=== PATIENT | female | born 1980 | race Caucasian/White ===

== ENCOUNTER 2018-08-09 18:38 | Emergency (ER) | payer BC ==
[2018-08-09] MEDS ORDERED: ONDANSETRON HCL INJ/PF 4 MG/2 ML SDV IV ONE (19:08)
--- NOTE | 2018-08-09 19:11 | ER Document Report ---
ED Medical Screen (RME) - General Chief Complaint: Vaginal Bleeding Stated Complaint: ABDOMINAL PAIN, NAUSEA, VOMITING Time Seen by Provider: 08/09/18 18:54 Mode of Arrival: Ambulatory Information source: Patient Notes: 37-year-old female with type 1 diabetes, PCOS, presents with complaint of nausea , vomiting, diarrhea and lower abdominal pain that started this morning. Patient's vaginal bleeding also started this morning. She reports passing a large blood clot. Patient does report a history of irregular and heavy periods. She does report a negative home test. I have greeted and performed a rapid initial assessment of this patient. A comprehensive ED assessment and evaluation of the patient, analysis of test results and completion of medical decision making process we will be contacted by additional ED providers. PHYSICAL EXAMINATION: Vital signs reviewed-tachycardic, afebrile GENERAL: Appears to be in pain LUNGS: No respiratory distress Musculoskeletal: Normal range of motion NEUROLOGICAL: Normal speech, normal gait. PSYCH: Normal mood, normal affect. SKIN: Warm, Dry, normal turgor, no rashes or lesions noted. TRAVEL OUTSIDE OF THE [place] IN LAST 30 DAYS: No - HPI Onset: This morning Onset/Duration: Gradual, Persistent Quality of pain: Cramping Severity: Moderate Associated Symptoms: Diarrhea, Nausea, Vaginal bleeding, Vomiting Exacerbated by: Denies Relieved by: Denies Similar symptoms previously: Yes Recently seen / treated by doctor: No - Related Data Smoking: Non-smoker Frequency of alcohol use: None Drug Abuse: None Allergies/Adverse Reactions: No Known Allergies Allergy (Verified 04/13/16 15:21) Past Medical History - Social History Chew tobacco use (# tins/day): No Frequency of alcohol use: None Drug Abuse: None - Past Medical History Cardiac Medical History: Reports: Hx Hypertension Pulmonary Medical History: Reports: Hx Bronchitis Endocrine Medical History: Reports: Hx Diabetes Mellitus Type 1 Renal/ Medical History: Reports: Hx Ovarian Cysts. Denies: Hx Peritoneal Dialysis Past Surgical History: Reports: Hx Oral Surgery, Hx Orthopedic Surgery - LEFT KNEE - Immunizations Hx Diphtheria, Pertussis, Tetanus Vaccination: Yes Physical Exam - Vital signs Vitals: Temp Pulse Resp BP Pulse Ox 98.2 F 101 H 18 141/85 H 98 08/09/18 18:46 08/09/18 18:46 08/09/18 18:46 08/09/18 18:46 08/09/18 18:46 Course - Vital Signs Vital signs: Temp Pulse Resp BP Pulse Ox 98.2 F 101 H 18 141/85 H 98 08/09/18 18:46 08/09/18 18:46 08/09/18 18:46 08/09/18 18:46 08/09/18 18:46 Doctor's Discharge - Discharge Referrals: SHARMILA WHITTINGTON MD [Primary Care Provider] - Follow up as needed
[2018-08-09 19:42] LABS: ABSOLUTE BASOPHILS # (AUTO) 0.1 10^3/uL (0.0-0.2); ABSOLUTE EOSINOPHILS # (AUTO) 0.5 10^3/uL (0.0-0.6); ABSOLUTE LYMPHOCYTES (AUTO) 3.7 10^3/uL (0.5-4.7); ABSOLUTE MONOCYTES (AUTO) 0.7 10^3/uL (0.1-1.4); ABSOLUTE NEUT (AUTO) 10.9 10^3/uL (1.7-8.2); BASOPHILS % (AUTO) 0.8 % (0-2); EOSINOPHILS % (AUTO) 2.9 % (0-6); HEMATOCRIT 39.4 % (36.0-47.0); HEMOGLOBIN 13.5 g/dL (12.0-15.5); LYMPHOCYTES % (AUTO) 23.4 % (13-45); MEAN CORPUSCULAR HEMOGLOBIN 31.5 pg (27.0-33.4); MEAN CORPUSCULAR HGB CONC 34.4 g/dL (32.0-36.0); MEAN CORPUSCULAR VOLUME 92 fl (80-97); MONOCYTES % (AUTO) 4.4 % (3-13); PLATELET COUNT 433 10^3/uL (150-450); RED CELL DISTRIBUTION WIDTH 13.2 % (11.5-14.0); SEGMENTED NEUTROPHILS % (AUTO) 68.5 % (42-78); TOTAL CELLS COUNTED % (AUTO) 100 %; WHITE BLOOD COUNT 15.9 10^3/uL (4.0-10.5)
[2018-08-09 19:52] LABS: APPEARANCE,URINE CLEAR; BILIRUBIN,URINE NEGATIVE (NEGATIVE); COLOR,URINE YELLOW; GLUCOSE, URINE NEGATIVE (NEGATIVE); KETONES,URINE NEGATIVE (NEGATIVE); LEUKOCYTE ESTERASE,URINE MODERATE (NEGATIVE); NITRITE,URINE NEGATIVE (NEGATIVE); PROTEIN,URINE NEGATIVE (NEGATIVE); URINE SPECIFIC GRAVITY 1.018; UROBILINOGEN,URINE NEGATIVE mg/dL (<2.0)
[2018-08-09 19:55] LABS: ALANINE AMINOTRANSFERASE 8 U/L (9-52); ALBUMIN 3.9 g/dL (3.5-5.0); ALKALINE PHOSPHATASE 94 U/L (38-126); ANION GAP 10 (5-19); ASPARTATE AMINO TRANSFERASE 9 U/L (14-36); BILIRUBIN,DIRECT 0.2 mg/dL (0.0-0.4); BILIRUBIN,TOTAL 0.2 mg/dL (0.2-1.3); BLOOD UREA NITROGEN 12 mg/dL (7-20); CALCIUM 9.4 mg/dL (8.4-10.2); CARBON DIOXIDE 27 mmol/L (22-30); CHLORIDE 106 mmol/L (98-107); GLUCOSE 160 mg/dL (75-110); LIPASE 231.6 U/L (23-300); POTASSIUM 4.2 mmol/L (3.6-5.0); SODIUM 142.6 mmol/L (137-145)
[2018-08-09] MEDS ORDERED: KETOROLAC TROMETHAMINE INJ/PF 30 MG/1 ML SDV IV ONE (20:54)
[2018-08-09] MEDS ORDERED: NORMAL SALINE 1000 ML 1,000 ML IV ONE (20:54)
--- NOTE | 2018-08-09 21:25 | ER Document Report ---
ED General - General Chief Complaint: Vaginal Bleeding Stated Complaint: ABDOMINAL PAIN, NAUSEA, VOMITING Time Seen by Provider: 08/09/18 18:54 Mode of Arrival: Ambulatory Notes: Patient is a 37-year-old female with a past medical history of type 2 diabetes, hypertension, recurrent ovarian cysts who presents with approximately 6-8 hours of left lower abdominal pain. The patient states that this pain started relatively abruptly and has been getting progressively worse since that time. She describes as a stabbing, severe, constant pain to her left lower abdomen. The patient states that she has had identical symptoms in the past with rupture of ovarian cysts. She notes associated nausea but no vomiting. She has not tried anything to improve her pain. Nothing worsens her pain. She has not seen her general physician regarding today's concerns. She denies associated constitutional symptoms or fever. TRAVEL OUTSIDE OF THE [place] IN LAST 30 DAYS: No - Related Data Allergies/Adverse Reactions: No Known Allergies Allergy (Verified 08/09/18 22:56) Past Medical History - General Information source: Patient - Social History Smoking Status: Current Every Day Smoker Chew tobacco use (# tins/day): No Frequency of alcohol use: None Drug Abuse: None Lives with: Spouse/Significant other Family History: Reviewed & Not Pertinent Patient has suicidal ideation: No Patient has homicidal ideation: No - Past Medical History Cardiac Medical History: Reports: Hx Hypertension Pulmonary Medical History: Reports: Hx Bronchitis Endocrine Medical History: Reports: Hx Diabetes Mellitus Type 1 Renal/ Medical History: Reports: Hx Ovarian Cysts. Denies: Hx Peritoneal Dialysis Past Surgical History: Reports: Hx Oral Surgery, Hx Orthopedic Surgery - LEFT KNEE - Immunizations Hx Diphtheria, Pertussis, Tetanus Vaccination: Yes Review of Systems - Review of Systems Notes: Constitutional: Negative for fever. HENT: Negative for sore throat. Eyes: Negative for visual changes. Cardiovascular: Negative for chest pain. Respiratory: Negative for shortness of breath. Gastrointestinal: Positive for abdominal pain and nausea Genitourinary: Negative for dysuria. Positive for vaginal bleeding Musculoskeletal: Negative for back pain. Skin: Negative for rash. Neurological: Negative for headaches, weakness or numbness. 10 point ROS negative except as marked above and in HPI. Physical Exam - Vital signs Vitals: Temp Pulse Resp BP Pulse Ox 98.2 F 101 H 18 141/85 H 98 08/09/18 18:46 08/09/18 18:46 08/09/18 18:46 08/09/18 18:46 08/09/18 18:46 Interpretation: Tachycardic Notes: PHYSICAL EXAMINATION: GENERAL: Appears to be in moderate discomfort but no acute distress HEAD: Atraumatic, normocephalic. EYES: Pupils equal round and reactive to light, extraocular movements intact, sclera anicteric, conjunctiva are normal. ENT: nares patent, oropharynx clear without exudates. Moist mucous membranes. NECK: Normal range of motion, supple without lymphadenopathy LUNGS: Breath sounds clear to auscultation bilaterally and equal. No wheezes rales or rhonchi. HEART: Regular tachycardia without murmurs ABDOMEN: Soft, focal tenderness to the left adnexa otherwise no areas of localized abdominal tenderness, normoactive bowel sounds. No guarding, no rebound. No masses appreciated. : No cervical motion tenderness. Scant vaginal bleeding. Mild left adnexal tenderness. EXTREMITIES: Normal range of motion, no pitting or edema. No cyanosis. NEUROLOGICAL: No focal neurological deficits. Moves all extremities spontaneously and on command. PSYCH: Normal mood, normal affect. SKIN: Warm, Dry, normal turgor, no rashes or lesions noted. Course - Re-evaluation Re-evalutation: 08/09/18 21:19 Patient presents with 24 hours of left adnexal pain. On exam she does have some focal tenderness to the left adnexa but her abdominal exam is otherwise completely benign without any areas of focal tenderness, rebound or guarding. Patient appears mild uncomfortable but is otherwise in no acute distress. Vitals within normal limits. Labs are notable for a mild ketosis but otherwise unremarkable. She is not . Transvaginal ultrasound pending to evaluate for the low probability of an ovarian torsion although patient states this feels any cold when she has had ovarian cyst ruptures related to her PCOS in the past. 08/09/18 22:47 Patient feels much improved. Transvaginal ultrasound without any acute findings. Pelvic exam without any evidence of cervical motion tenderness or discharge from cervical loss other than mild blood to suggest any infectious etiology. Patient's heart rate has likewise improved. At this time her symptoms appear to be mostly related to menstrual cramping versus possible ruptured ovarian cyst. Very low suspicion for ovarian torsion, tubo-ovarian abscess, pelvic inflammatory disease or any other alternative N pathology. The patient has no abdominal tenderness the right lower quadrant to suggest an acute appendicitis. No upper abdominal tenderness to suggest pink otitis or biliary pathology. No left lower quadrant tenderness to suggest an acute diverticulitis. At this time will discharge with return precautions and follow- up recommendations. Verbal discharge instructions given a the bedside and opportunity for questions given. Medication warnings reviewed. Patient is in agreement with this plan and has verbalized understanding of return precautions and the need for primary care follow-up in the next 24-72 hours. - Vital Signs Vital signs: Temp Pulse Resp BP Pulse Ox 98 F 65 15 118/62 99 08/09/18 22:26 08/09/18 22:26 08/09/18 22:26 08/09/18 22:26 08/09/18 22:26 - Laboratory Result Diagrams: 08/09/18 19:15 08/09/18 19:15 Laboratory results interpreted by me: 08/09/18 08/09/18 08/09/18 19:15 19:15 19:15 WBC 15.9 H Absolute Neutrophils 10.9 H Glucose 160 H POC Glucose AST 9 L ALT 8 L Urine Blood MODERATE H Ur Leukocyte Esterase MODERATE H Urine Ascorbic Acid 40 H 08/09/18 19:22 WBC Absolute Neutrophils Glucose POC Glucose 196 H AST ALT Urine Blood Ur Leukocyte Esterase Urine Ascorbic Acid - Diagnostic Test Radiology reviewed: Reports reviewed Discharge - Discharge Clinical Impression: Lower abdominal pain, Vaginal bleeding, Pelvic pain Condition: Good Disposition: HOME, SELF-CARE Additional Instructions: You have been seen in the Emergency Department (ED) for abdominal pain. Your evaluation did not identify a clear cause of your symptoms but was generally reassuring. Please follow up with your doctor as soon as possible regarding today's emergent visit and the symptoms that are bothering you. Return to the ED if your abdominal pain worsens or fails to improve, you develop bloody vomiting, bloody diarrhea, you are unable to tolerate fluids due to vomiting, fever greater than 101, or other symptoms that concern you. For your pain: Take ibuprofen 600 mg and acetaminophen 1000 mg every 6 hours together as needed for pain. If this does not control your pain you may take 50 mg of tramadol every 8 hours as needed for pain not controlled by the above regimen. Prescriptions: Tramadol HCl [Ultram] 50 mg PO Q8HP PRN #6 tablet PRN Reason: Referrals: SHARMILA WHITTINGTON MD [COMMUNITY BASED STAFF] - Follow up in 3-5 days
[2018-08-09] MEDS ORDERED: MORPHINE SULFATE 10 MG/ML INJ IV PRN (22:06)
--- NOTE | 2018-08-09 22:14 | RADIOLOGY REPORT (SQ) ---
EXAM DESCRIPTION: US TRANSVAGINAL COMPLETED DATE/TME: 08/09/2018 20:54 CLINICAL HISTORY: 37 years, Female, left adnexal pain. Findings: Uterus is anteverted and measures 8.9 x 4.4 x 3.9 cm. Endometrium measures 6 mm. Cervix measures 3.3 cm and is closed. Right ovary measures 2.9 x 2.2 x 2.0 cm. Left ovary is not visualized due to bowel gas. No significant ovarian cysts. No free fluid in the cul-de-sac. IMPRESSION: No suspicious findings.
[2018-08-09 22:27] VITALS: BP 118/62
[2018-08-09 22:59] LABS: RBCS (WET MOUNT) 4+ RBCS SEEN; T.VAGINALIS (WET MOUNT) NO TRICHOMONAS SEEN; WBCS (WET MOUNT) 1+ WBCS SEEN; YEAST (WET MOUNT) NO YEAST SEEN
[2018-08-10 00:26] LABS: CHLAM PCR NOT DETECTED (NOT DETECT); GON PCR NOT DETECTED (NOT DETECT)
== END 2018-08-09 23:04 | disposition home or self-care (01) ==
LOC: ER 18:38
DX: R10.32 Left lower quadrant pain (principal); R10.2 Pelvic and perineal pain; N93.9 Abnormal uterine and vaginal bleeding, unspecified; R11.0 Nausea; F17.200 Nicotine dependence, unspecified, uncomplicated; I10 Essential (primary) hypertension
CPT/HCPCS: 99284; 96361; 96374; 96375; 36415; 87210; 82962; 83690; 85025; 81025; 80053; 81001; 87491; 87591; 76830; 93976; J1885; J2405; J7030

== ENCOUNTER 2018-08-22 02:55 | Emergency (ER) | payer BC ==
[2018-08-22] MEDS ORDERED: KETOROLAC TROMETHAMINE INJ/PF 30 MG/1 ML SDV IV ONE (03:41)
[2018-08-22] MEDS ORDERED: ONDANSETRON HCL INJ/PF 4 MG/2 ML SDV IV ONE (03:41)
[2018-08-22] MEDS ORDERED: NORMAL SALINE 1000 ML 1,000 ML IV ONE ×2 (03:41→06:16)
--- NOTE | 2018-08-22 03:44 | ER Document Report ---
Addendum entered and electronically signed by CLARK GREEN NP 08/25/18 11:24: Provider Note Provider Note: Culture nurse brought to my attention the patient's culture report. Patient has E. coli in her urine as well as 1 complete sets of blood cultures. Antibiotic the patient was placed on is not appropriate for E. coli. Attempted to call the patient, there was no answer. I did fill out the appropriate order for Abena lockwood to call the patient and change her antibiotic to Cipro 500 mg twice daily for 10 days. If patient is not feeling better patient is to return to the emergency department. Addendum entered and electronically signed by CLARK GREEN NP 08/23/18 08:34: Course - Vital Signs Vital signs: Temp Pulse Resp BP Pulse Ox 98.8 F 98 16 111/55 L 99 08/22/18 10:45 08/22/18 10:59 08/22/18 10:59 08/22/18 10:59 08/22/18 10:59 - Laboratory Result Diagrams: 08/22/18 04:27 08/22/18 04:27 Laboratory results interpreted by me: 08/22/18 08/22/18 08/22/18 04:27 04:27 05:42 WBC 18.3 H Seg Neutrophils % 83.6 H Lymphocytes % 6.8 L Absolute Neutrophils 15.3 H Absolute Monocytes 1.6 H Creatinine 0.51 L Glucose 119 H AST 8 L Total Protein 6.2 L Urine Protein 100 H Urine Blood MODERATE H Urine Nitrite POSITIVE H Ur Leukocyte Esterase LARGE H Original Note: ED General - General TRAVEL OUTSIDE OF THE [place] IN LAST 30 DAYS: No <SHUKRI ROJAS - Last Filed: 08/22/18 07:21> <CLARK GREEN - Last Filed: 08/22/18 10:48> - General Chief Complaint: Flu Symptoms Stated Complaint: FEVER Time Seen by Provider: 08/22/18 03:26 Notes: Patient is a 38-year-old female that comes emergency department for chief complaint of 4 days of sick symptoms. She states she has had fevers and chills since yesterday, she has had body aches for several days, she has had a mild cough with minimal congestion. She denies any particular abdominal pain, she does report nausea. She denies chest pain, vomiting, diarrhea, sore throat. She has had intermittent headaches but none now. No obvious sick contacts. She has had the influenza vaccine. Only past medical history reported is hypertension. Denies frequent alcohol, denies recreational drugs, denies smoking. (SHURKI ROJAS) - Related Data Allergies/Adverse Reactions: No Known Allergies Allergy (Verified 08/09/18 22:56) Past Medical History - General Information source: Patient - Social History Smoking Status: Never Smoker Frequency of alcohol use: Occasional Drug Abuse: None Lives with: Spouse/Significant other Family History: Reviewed & Not Pertinent - Past Medical History Cardiac Medical History: Reports: Hx Hypertension Pulmonary Medical History: Reports: Hx Bronchitis Renal/ Medical History: Reports: Hx Ovarian Cysts. Denies: Hx Peritoneal Dialysis Past Surgical History: Reports: Hx Oral Surgery, Hx Orthopedic Surgery - LEFT KNEE - Immunizations Hx Diphtheria, Pertussis, Tetanus Vaccination: Yes <SHUKRI ROJAS - Last Filed: 08/22/18 07:21> Review of Systems - Review of Systems Constitutional: See HPI EENT: No symptoms reported Cardiovascular: No symptoms reported Respiratory: See HPI Gastrointestinal: See HPI Genitourinary: No symptoms reported Female Genitourinary: No symptoms reported Musculoskeletal: No symptoms reported Skin: No symptoms reported Hematologic/Lymphatic: No symptoms reported Neurological/Psychological: No symptoms reported <SHUKRI ROJAS - Last Filed: 08/22/18 07:21> Physical Exam <SHUKRI ROJAS - Last Filed: 08/22/18 07:21> - Vital signs Vitals: Temp Pulse Resp BP Pulse Ox 100.2 F 123 H 24 H 108/67 99 08/22/18 03:04 08/22/18 03:04 08/22/18 03:04 08/22/18 03:04 08/22/18 03:04 - Notes Notes: GENERAL: Alert, interacts well. No acute distress. HEAD: Normocephalic, atraumatic. EYES: Pupils equal, round, and reactive to light. Extraocular movements intact. ENT: Oral mucosa moist, tongue midline. Oropharynx unremarkable. Airway patent. Nares patent, no nasal septal hematoma, TM's intact. NECK: Full range of motion. Supple. Trachea midline. LUNGS: Clear to auscultation bilaterally, no wheezes, rales, or rhonchi. No respiratory distress. HEART: Regular rate and rhythm. No murmur ABDOMEN: Soft, non-tender. Non-distended. Bowel sounds present in all 4 quadrants. GENITOURINARY: Deferred EXTREMITIES: Moves all 4 extremities spontaneously. No edema, normal radial and dorsalis pedis pulses bilaterally. No cyanosis. BACK: no cervical, thoracic, lumbar midline tenderness. No saddle anesthesia, normal distal neurovascular exam. NEUROLOGICAL: Alert and oriented x3. Normal speech. [cranial nerves II through XII grossly intact]. PSYCH: Normal affect, normal mood. SKIN: Warm, dry, normal turgor. No rashes or lesions noted. (SHUKRI ROJAS) Course - Laboratory Result Diagrams: 08/22/18 04:27 08/22/18 04:27 <SHUKRI ROJAS - Last Filed: 08/22/18 07:21> - Laboratory Result Diagrams: 08/22/18 04:27 08/22/18 04:27 <CLARK GREEN - Last Filed: 08/22/18 10:48> - Re-evaluation Re-evalutation: 08/22/18 05:00 Patient reevaluated. She now has shaking chills and appears slightly worse. Temperature was rechecked and found to be rising despite 30 mg of Toradol IV. Giving 975 mg of acetaminophen, adding blood cultures and lactic acid. CBC shows leukocytosis at 18,000 with elevated neutrophils but no bandemia. Chemistry unremarkable. Chest x-ray unremarkable. Influenza test is negative. Urine is still pending. Patient has borderline tachycardia, she is not hypotensive at this time. 08/22/18 06:15 Urinalysis shows evidence of pyelonephritis with white blood cell clumps, positive nitrates, bacteria, leukocyte esterase, white blood cells. Starting antibiotics. I called lab because the lactic acid is still pending, this is being checked on now. 08/22/18 07:10 Patient's fever finally broke. Lactic acid is not elevated. Heart rate is down to 106. Blood pressure has become slightly soft. I discussed with patient. I am concerned because of her initially elevating fever, her infection, her soft blood pressure. Patient states she wants to go home. Patient agrees to be monitored for an additional time. To see if she worsens or if she improves, I did introduce Clark CASAS at bedside, patient will be reevaluated for disposition (if she continues to downtrend with blood pressure or remains tachycardic plan will be to admit, if she has improved vital signs and continues to feel improved she can potentially go home on antibiotics). Patient states understanding and agreement with this plan. (SHUKRI ROJAS) 08/22/18 09:45 Patient has been monitored for several hours. She continues to report that she is feeling much improved. Patient continues to request to go home. Heart rate has been ranging from 95-105. Patient has not vomited and has tolerated p.o. fluids. Patient will be discharged home at this time, I did discuss very specific ED return precautions with the patient and her and her significant other at the bedside verbalized understanding of same. 08/22/18 10:47 Nursing staff at bedside to discharge patient. Patient's heart rate has increased to 110. Patient states she is having some chills. Will give patient another dose of Tylenol 975 mg as I have spent over 4 hours since her last dose. Patient continues to request discharge home. Reiterated ED return precautions. (CLARK GREEN) - Vital Signs Vital signs: Temp Pulse Resp BP Pulse Ox 98.8 F 123 H 26 H 108/61 99 08/22/18 10:45 08/22/18 03:04 08/22/18 06:01 08/22/18 10:01 08/22/18 10:01 - Laboratory Laboratory results interpreted by me: 08/22/18 08/22/18 08/22/18 04:27 04:27 05:42 WBC 18.3 H Seg Neutrophils % 83.6 H Lymphocytes % 6.8 L Absolute Neutrophils 15.3 H Absolute Monocytes 1.6 H Creatinine 0.51 L Glucose 119 H AST 8 L Total Protein 6.2 L Urine Protein 100 H Urine Blood MODERATE H Urine Nitrite POSITIVE H Ur Leukocyte Esterase LARGE H Discharge <SHUKRI ROJAS - Last Filed: 08/22/18 07:21> <CLARK GREEN - Last Filed: 08/22/18 10:48> - Discharge Clinical Impression: Pyelonephritis Condition: Stable Disposition: HOME, SELF-CARE Additional Instructions: PYELONEPHRITIS: Your evaluation shows evidence of pyelonephritis. This is an infection in the kidney. Typical symptoms are fever, pain in the flank, pain on urination, and frequent urination. Many cases of pyelonephritis can be treated at home. Hospital care may be necessary for patients who are very ill, or elderly or . Pyelonephritis is treated with antibiotics. Be sure to take all the medication as prescribed. Drink plenty of liquids (about three quarts per day). You may take acetaminophen for fever. You should feel significantly improved within two days. You should have a recheck of your urine in about one week to insure that the infection is gone. Return for a re-examination if your symptoms worsen in any way -- such as high fever, shaking chills, severe weakness or dizziness, severe pain, or inability to pass your urine. ANTINAUSEA MEDICATION: You have been given a medication to suppress nausea and vomiting. This type of medication can be given as a shot, pill, or suppository. It will usually last for many hours. Pills and shots usually last six to eight hours, suppositories last about 12 hours. For the typical illness, only one or two doses of the medication may be necessary. Mild lightheadedness may occur. This type of medicine can cause drowsiness. Do not drive or operate dangerous machinery while under its influence. Do not mix with alcohol. See your doctor at once if you have muscle spasms or tightness, or uncontrollable motions (particularly of the neck, mouth, or jaw). Persistent vo miting or severe lightheadedness should also be evaluated by the physician. ANTIBIOTIC THERAPY: You have been given an antibiotic prescription. It's important that you take all the medication, unless instructed otherwise by your physician. Failure to complete the entire course can result in relapse of your condition. Common side effects of antibiotics include nausea, intestinal cramping, or diarrhea. Women may develop vaginal yeast infections, and babies can get yeast (thrush) in the mouth following the use of antibiotics. Contact your physician if you develop significant side effects from this medication. Allergy to this antibiotic can result in hives, wheezing, faintness, or itching. If symptoms of allergy occur, stop the medication and call the doctor. ROCEPHIN: You have been given an injection of an antibiotic called Rocephin (ceftriaxone). Sometimes the injection must be combined with antibiotic pills. For some infections, such as an uncomplicated ear infection, Rocephin provides all the antibiotic that's needed. The antibiotic will be in your body for about two days. For serious infections, we usually repeat doses of Rocephin daily. Side effects are very unusual following a shot. Women may develop vaginal yeast infections, and babies can get yeast (thrush) in the mouth following the use of antibiotics. Contact your physician if you have symptoms with this medication. Allergy to this antibiotic can result in hives, wheezing, faintness, or itching. If symptoms of allergy occur, call the doctor at once. TRIMETHOPRIM-SULFA: You have been given a prescription for trimethoprim-sulfa (TMS, Septra, Bactrim). This is a combination antibiotic of the sulfa class, often used for urinary tract infections, middle ear infections, bronchitis, shigella intestinal infection, and Pneumocystis pneumonia. TMS is usually well-tolerated. Occasional side effects include nausea and decreased appetite. Septra is not recommended for infants less than two months of age. Do not take this medication if you have experienced severe side effects or allergy to sulfa medicine. You should stop this medicine at once and contact your physician if you develop any rash, joint pain, shortness of breath, bruising, or jaundice (yellow color in the skin), or if you develop any other new or unusual symptoms. USE OF ACETAMINOPHEN (Tylenol): Acetaminophen may be taken for pain relief or fever control. It's much safer than aspirin, offering a wider range of "safe" dosages. It is safe during . Some brand names are Tylenol, Panadol, Datril, Anacin 3, Tempra, and Liquiprin. Acetaminophen can be repeated every four hours. The following are maximum recommended dosages: >89 pounds or adults 650 mg to 900 mg Acetaminophen can be repeated every four hours. Maximum dose not to exceed 4000 mg a day. ORAL NARCOTIC MEDICATION: You have been given a prescription for pain control. This medication is a narcotic. It's best taken with food, as nausea can result if taken on an empty stomach. Don't operate machinery or drive within six hours of taking this medication. Do not combine this medicine with alcohol, or with any medication which can cause sedation (such as cold tablets or sleeping pills) unless you get permission from the physician. Narcotics tend to cause constipation. If possible, drink plenty of fluids and eat a diet high in fiber and fruits. Please be aware that prescription narcotics also have the potential for abuse. People become addicted to these medications because of the general sense of wellbeing that they induce. This feeling along with a significant reduction in tension, anxiety, and aggression provides a stimulating seductive quality to these drugs. Once your pain is under control, we encourage you to discard your unused narcotics. FOLLOW-UP CARE: If you have been referred to a physician for follow-up care, call the physicians office for an appointment as you were instructed or within the next two days. If you experience worsening or a significant change in your symptoms, notify the physician immediately or return to the Emergency Department at any time for re-evaluation. Please take all medications as prescribed. Complete the entire course of antibiotics even if your symptoms improve. You may also take ibuprofen 600 mg every 6 hours to help with pain and fever. Use the Zofran as needed for nausea and/or vomiting. You should have a low threshold to return to the emergency department. If you experience worsening pain, persistent fever, persistent vomiting or generally not feeling better please return to the emergency department. Prescriptions: Hydrocodone Bit/Acetaminophen [Hydrocodon-Acetaminophen 5-325] 1 each PO Q4H PRN #10 tablet PRN Reason: For Pain Ondansetron [Zofran Odt 4 mg Tablet] 1 - 2 tab PO Q4H PRN #15 tab.rapdis PRN Reason: For Nausea/Vomiting Sulfamethoxazole/Trimethoprim [Bactrim Ds Tablet] 1 tab PO BID 14 Days #28 tablet Referrals: SHARMILA WHITTINGTON MD [Primary Care Provider] - Follow up as needed
[2018-08-22 04:19] LABS: A TYPE INFLUENZA AG NEGATIVE (NEGATIVE); B INFLUENZA AG NEGATIVE (NEGATIVE)
--- NOTE | 2018-08-22 04:19 | RADIOLOGY REPORT (SQ) ---
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 The heart is normal in size. The mediastinal contours are normal in appearance. The thoracic spine is age appropriate. The shoulders are unremarkable. Limited evaluation of the upper abdomen demonstrates no gross abnormalities. Impression: No acute cardiopulmonary disease (stable appearing chest).
[2018-08-22 04:36] LABS: ABSOLUTE EOSINOPHILS # (AUTO) 0.1 10^3/uL (0.0-0.6); ABSOLUTE LYMPHOCYTES (AUTO) 1.2 10^3/uL (0.5-4.7); ABSOLUTE MONOCYTES (AUTO) 1.6 10^3/uL (0.1-1.4); ABSOLUTE NEUT (AUTO) 15.3 10^3/uL (1.7-8.2); BASOPHILS % (AUTO) 0.2 % (0-2); EOSINOPHILS % (AUTO) 0.7 % (0-6); HEMATOCRIT 36.2 % (36.0-47.0); HEMOGLOBIN 12.5 g/dL (12.0-15.5); LYMPHOCYTES % (AUTO) 6.8 % (13-45); MEAN CORPUSCULAR HEMOGLOBIN 31.6 pg (27.0-33.4); MEAN CORPUSCULAR HGB CONC 34.6 g/dL (32.0-36.0); MEAN CORPUSCULAR VOLUME 91 fl (80-97); MONOCYTES % (AUTO) 8.7 % (3-13); PLATELET COUNT 277 10^3/uL (150-450); RED BLOOD COUNT 3.97 10^6/uL (3.72-5.28); SEGMENTED NEUTROPHILS % (AUTO) 83.6 % (42-78); TOTAL CELLS COUNTED % (AUTO) 100 %; WHITE BLOOD COUNT 18.3 10^3/uL (4.0-10.5)
[2018-08-22 04:46] LABS: ALANINE AMINOTRANSFERASE 9 U/L (9-52); ALBUMIN 3.5 g/dL (3.5-5.0); ALKALINE PHOSPHATASE 63 U/L (38-126); ANION GAP 9 (5-19); ASPARTATE AMINO TRANSFERASE 8 U/L (14-36); BILIRUBIN,DIRECT 0.1 mg/dL (0.0-0.4); BILIRUBIN,TOTAL 0.6 mg/dL (0.2-1.3); BLOOD UREA NITROGEN 9 mg/dL (7-20); CALCIUM 8.9 mg/dL (8.4-10.2); CARBON DIOXIDE 23 mmol/L (22-30); CHLORIDE 107 mmol/L (98-107); GLUCOSE 119 mg/dL (75-110); POTASSIUM 3.6 mmol/L (3.6-5.0); SODIUM 138.8 mmol/L (137-145); TOTAL PROTEIN 6.2 g/dL (6.3-8.2)
[2018-08-22] MEDS ORDERED: ACETAMINOPHEN 325 MG TABLET PO ONE ×2 (05:03→10:39)
[2018-08-22 05:59] LABS: APPEARANCE,URINE CLOUDY; BILIRUBIN,URINE NEGATIVE (NEGATIVE); COLOR,URINE YELLOW; GLUCOSE, URINE NEGATIVE (NEGATIVE); KETONES,URINE NEGATIVE (NEGATIVE); LEUKOCYTE ESTERASE,URINE LARGE (NEGATIVE); NITRITE,URINE POSITIVE (NEGATIVE); PROTEIN,URINE 100 mg/dL (NEGATIVE); URINE SPECIFIC GRAVITY 1.014; UROBILINOGEN,URINE NEGATIVE mg/dL (<2.0)
[2018-08-22] MEDS ORDERED: CEFTRIAXONE 1 GM/D5W RTU 1 GM/50 ML RTUPB IV ONE (06:11)
[2018-08-22] MEDS ORDERED: FENTANYL CITRATE INJ/PF 100 MCG/2 ML AMPUL IV ONE (06:16)
[2018-08-22] MEDS ORDERED: NORMAL SALINE 1000 ML 1,000 ML IV PRN (07:10)
[2018-08-22] MEDS ORDERED: ONDANSETRON 4 MG TAB.RAPDIS PO ONE (09:16)
[2018-08-22 11:00] VITALS: BP 111/55
--- NOTE | 2018-08-25 14:19 | ER Document Report ---
Doctor's Note Notes: 08/25/18 14:18 Patient called, reports that she is feeling improved. Will call in new prescription based upon both urine and blood culture results. She called into [facility] pharmacy on [address]. Cipro 500 mg p.o. twice daily times 7 days. 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
== END 2018-08-22 11:00 | disposition home or self-care (01) ==
LOC: ER 02:55
DX: N12 Tubulo-interstitial nephritis, not specified as acute or chronic (principal); R50.9 Fever, unspecified; M79.10 Myalgia, unspecified site; R05 Cough; R09.81 Nasal congestion; I10 Essential (primary) hypertension
CPT/HCPCS: 99284; 96361; 96375; 96365; 36415; 87040; 87086; 85025; 81025; 87077; 87088; 80053; 81001; 87186; 83605; 87804; 71046; S0119; J3010; J1885; J2405; J7030; J0696

== ENCOUNTER 2019-05-02 03:10 | Emergency (ER) | payer BC ==
[2019-05-02] MEDS ORDERED: FAMOTIDINE 20 MG TABLET PO ONE (03:32)
[2019-05-02] MEDS ORDERED: DIPHENHYDRAMINE HCL 50 MG CAPSULE PO ONE (03:32)
[2019-05-02 07:26] VITALS: BP 131/78
[2019-05-02] MEDS ORDERED: DIAZEPAM INJ 10 MG/2 ML DISP.SYRIN IM ONE (09:02)
[2019-05-02] MEDS ORDERED: ALBUTEROL SULFATE HFA (90 MCG/PUFF) 8 GM MDI (1 MDI/ER DISP) IH ONE (09:22)
--- NOTE | 2019-05-02 09:22 | ER Document Report ---
ED General - General Chief Complaint: Allergic Reaction Stated Complaint: POSSIBLE ALLERGIC REACTION Time Seen by Provider: 05/02/19 08:23 Primary Care Provider: VITO SAEZ MD [Primary Care Provider] - Follow up as needed Notes: 38-year-old female presents to the emergency department with chief complaint of an adverse reaction to prednisone. Patient states that she has a work injury to her right arm, saw a doctor through work, and they prescribed her prednisone along with another NSAID and some Flexeril. Patient states that she took the prednisone for the first time yesterday and later in the day felt like "wanted to crawl out of my skin". Patient states she felt very agitated and attempted to take a bath later in the evening but did not feel better. She then went for a walk and still felt anxious and uncomfortable so she had her boyfriend bring her to the emergency department. Has taken prednisone in the past but states that she had a recent 100 pound weight loss and has not taken it since then and is wondering if that alter the effects. Patient denies any fevers or chills, denies any concerning psychiatric symptoms like suicidal or homicidal ideations, complete of agitation and anxiety which is mostly subsided, denies any acute shortness of breath or chest pain, denies any nausea or vomiting, denies any rash. TRAVEL OUTSIDE OF THE [place] IN LAST 30 DAYS: No - Related Data Allergies/Adverse Reactions: No Known Allergies Allergy (Verified 08/09/18 22:56) Past Medical History - Social History Smoking Status: Unknown if Ever Smoked Family History: Reviewed & Not Pertinent Patient has suicidal ideation: No Patient has homicidal ideation: No - Past Medical History Cardiac Medical History: Reports: Hx Hypertension Pulmonary Medical History: Reports: Hx Bronchitis Endocrine Medical History: Reports: Hx Diabetes Mellitus Type 1 Renal/ Medical History: Reports: Hx Ovarian Cysts. Denies: Hx Peritoneal Dialysis Past Surgical History: Reports: Hx Oral Surgery, Hx Orthopedic Surgery - LEFT KNEE - Immunizations Hx Diphtheria, Pertussis, Tetanus Vaccination: Yes Review of Systems - Review of Systems Constitutional: See HPI EENT: No symptoms reported Cardiovascular: See HPI Respiratory: See HPI Gastrointestinal: See HPI Genitourinary: No symptoms reported Female Genitourinary: No symptoms reported Musculoskeletal: See HPI Skin: See HPI Hematologic/Lymphatic: No symptoms reported Neurological/Psychological: See HPI Physical Exam - Vital signs Vitals: Temp Pulse Resp BP Pulse Ox 98.3 F 103 H 20 161/88 H 97 05/02/19 03:14 05/02/19 03:14 05/02/19 03:14 05/02/19 03:14 05/02/19 03:14 - Notes Notes: PHYSICAL EXAMINATION: Reviewed vital signs and charting by RN GENERAL: Alert, interacts well. No acute distress. HEAD: Normocephalic, atraumatic. EYES: Pupils equal and round. Extraocular movements intact. ENT: Oral mucosa moist, tongue midline. NECK: Full range of motion. Trachea midline. LUNGS: End expiratory wheezes wheezes bilateral bases, no rales or rhonchi. No respiratory distress. HEART: Regular rate and rhythm. No murmur ABDOMEN: soft, non-tender. No distention. Bowel sounds present EXTREMITIES: Moves all 4 extremities spontaneously. No edema, No cyanosis. PSYCH: Normal affect, normal mood. SKIN: Warm, dry, normal turgor. No rashes or lesions noted. Course - Re-evaluation Re-evalutation: 05/02/19 09:36 Patient is well-appearing in no acute distress. She states that she does feel better but does feel tired and very mildly agitated. I instructed her to immediately stop taking the prednisone. I have given her diazepam 10 mg IM once here in the emergency department and will send her home with a very short course of diazepam 5 mg p.o. that she can use in the lieu of the Flexeril over the next couple of days while the prednisone metabolizes in her system. I gave her strict instructions not to mix the Flexeril and the diazepam and told her to wait until the diazepam is gone to resume taking the Flexeril. Patient understands the plan clearly. I also heard some expiratory wheezing as patient says that she is suffering from a mild URI. I gave her an albuterol inhaler with spacer to take home for symptomatic relief. She is stable for discharge. - Vital Signs Vital signs: Temp Pulse Resp BP Pulse Ox 98.6 F 75 20 131/78 H 97 05/02/19 07:24 05/02/19 07:24 05/02/19 03:14 05/02/19 07:24 05/02/19 07:24 Discharge - Discharge Clinical Impression: Prednisone adverse reaction Qualifiers: Encounter type: initial encounter Qualified Code(s): T38.0X5A - Adverse effect of glucocorticoids and synthetic analogues, initial encounter Condition: Good Disposition: HOME, SELF-CARE Additional Instructions: You were seen in the emergency department this morning for an adverse reaction to prednisone. Like we discussed please stop taking it altogether. Also, the literature is mixed on the benefits of prednisone for the type of injury you sustained a musculoskeletal issues. I have given you an intramuscular dose of Valium here in the emergency department and a short prescription for a small dose of Valium that you can take home. Please hold off taking the Flexeril until you are done taking the Valium. I strongly recommend against taking them together as it can cause excessive sedation. It typically takes 24 to 48 hours for her to be completely out of your system. Please return to the emergency department if you have worsening neuropsychiatric symptoms, shortness of breath, or you have any other concerning symptoms. Prescriptions: Diazepam [Valium 5 mg Tablet] 5 mg PO QIDP PRN #10 tablet PRN Reason: Referrals: VITO SAEZ MD [Primary Care Provider] - Follow up as needed
== END 2019-05-02 10:04 | disposition home or self-care (01) ==
LOC: ER 03:10
DX: T38.0X5A Adverse effect of glucocorticoids and synthetic analogues, initial encounter (principal); R45.1 Restlessness and agitation; F41.9 Anxiety disorder, unspecified; Z79.899 Other long term (current) drug therapy; I10 Essential (primary) hypertension
CPT/HCPCS: 99283; J3490

== ENCOUNTER 2019-07-10 08:30 | Emergency (ER) | payer SELFPAY ==
[2019-07-10 10:07] LABS: ABSOLUTE BASOPHILS # (AUTO) 0.1 10^3/uL (0.0-0.2); ABSOLUTE EOSINOPHILS # (AUTO) 0.5 10^3/uL (0.0-0.6); ABSOLUTE LYMPHOCYTES (AUTO) 3.2 10^3/uL (0.5-4.7); ABSOLUTE MONOCYTES (AUTO) 0.7 10^3/uL (0.1-1.4); ABSOLUTE NEUT (AUTO) 9.5 10^3/uL (1.7-8.2); BASOPHILS % (AUTO) 0.5 % (0-2); EOSINOPHILS % (AUTO) 3.7 % (0-6); HEMATOCRIT 42.5 % (36.0-47.0); HEMOGLOBIN 14.7 g/dL (12.0-15.5); LYMPHOCYTES % (AUTO) 23.2 % (13-45); MEAN CORPUSCULAR HEMOGLOBIN 32.5 pg (27.0-33.4); MEAN CORPUSCULAR HGB CONC 34.7 g/dL (32.0-36.0); MEAN CORPUSCULAR VOLUME 94 fl (80-97); MONOCYTES % (AUTO) 4.8 % (3-13); PLATELET COUNT 272 10^3/uL (150-450); RED BLOOD COUNT 4.54 10^6/uL (3.72-5.28); RED CELL DISTRIBUTION WIDTH 13.2 % (11.5-14.0); SEGMENTED NEUTROPHILS % (AUTO) 67.8 % (42-78); TOTAL CELLS COUNTED % (AUTO) 100 %
[2019-07-10 10:17] LABS: APPEARANCE,URINE CLEAR; BILIRUBIN,URINE NEGATIVE (NEGATIVE); COLOR,URINE YELLOW; GLUCOSE, URINE NEGATIVE (NEGATIVE); KETONES,URINE NEGATIVE (NEGATIVE); LEUKOCYTE ESTERASE,URINE NEGATIVE (NEGATIVE); NITRITE,URINE NEGATIVE (NEGATIVE); PROTEIN,URINE NEGATIVE (NEGATIVE); URINE SPECIFIC GRAVITY 1.008; UROBILINOGEN,URINE NEGATIVE mg/dL (<2.0)
[2019-07-10 10:30] LABS: ALBUMIN 3.6 g/dL (3.5-5.0); ALKALINE PHOSPHATASE 53 U/L (38-126); ANION GAP 9 (5-19); ASPARTATE AMINO TRANSFERASE 17 U/L (14-36); BILIRUBIN,TOTAL 0.4 mg/dL (0.2-1.3); BLOOD UREA NITROGEN 5 mg/dL (7-20); CALCIUM 9.3 mg/dL (8.4-10.2); CARBON DIOXIDE 23 mmol/L (22-30); CHLORIDE 106 mmol/L (98-107); GLUCOSE 95 mg/dL (75-110); POTASSIUM 3.7 mmol/L (3.6-5.0); TOTAL PROTEIN 6.3 g/dL (6.3-8.2)
--- NOTE | 2019-07-10 12:01 | RADIOLOGY REPORT (SQ) ---
EXAM DESCRIPTION: U/S OB TRANSVAGINAL W/O DOP COMPLETED DATE/TIME: 07/10/2019 11:03 am REASON FOR STUDY: Pelvic cramps, LMP 06/02/2019, positive hCG COMPARISON: No previous this TECHNIQUE: Endovaginal static and realtime grayscale images acquired of the pelvis. Additional selec sybil spectral and color Doppler images recorded. All images stored on PACs. CLINICAL AGE: Last menses 06/02/2019 [id number] LIMITATIONS: None. FINDINGS: UTERUS: Uterus is 9 x 5 x 8 cm in size. Bicornuate uterus, gestational sac is in the righ t horn GESTATIONAL SAC: Normal shape. Mean sac diameter generates an estimated age of 5 weeks 4 days, estim ated due date is 03/07/2020 YOLK SAC: Present POLE: None present. A moderate size subchorionic hemorrhage is present with mixed echogenicity clot, 2.5 by 1 cm in size. RIGHT ADNEXA: Normal ovary with normal vascular flow. Right ovary 3.6 x 4.5 x 2.2 cm in size. No ad nexal free fluid.No adnexal masses. LEFT ADNEXA: Ovary not well seen due to bowel gas. No gross adnexal fluid. FREE FLUID: Trace posterior cul-de-sacs fluid, likely physiologic OTHER: No other significant finding. IMPRESSION: Intrauterine gestational sac is present with a yolk sac. No pole. Estimated age 5 weeks 4 days, estimated due date by mean sac diameter 03/07/2020. Moderate size subchorionic hemorrhage. is in a bicornuate uterus, right uterine horn. Nonvisualization left adnexa due to bowel gas Trimester of : First trimester - 0 to 13 weeks. TECHNICAL DOCUMENTATION: JOB ID: [id number] QR Artist- All Rights Reserved Reading location - [facility]workstation name: [email or web address]
[2019-07-10 13:14] VITALS: BP 112/67
--- NOTE | 2019-07-10 18:29 | ER Document Report ---
Entered by JESSICA SANCHEZ SCRIBE 07/10/19 1024 Acting as scribe for:ZECHARIAH MCGARRY MD ED GI/ - General Chief Complaint: Abdominal Pain Stated Complaint: ABDOMINAL PAIN, DIZZY Time Seen by Provider: 07/10/19 10:11 Mode of Arrival: Ambulatory Information source: Patient Notes: 38-year-old female presents to the emergency department today complaining of lower abdominal pain for the last few days along with a positive at-home test. Patient states this was a bit of a surprise for her. Patient states is A4, not including this possible . Patient states that her abdominal pain is lower, intermittent, and she describes it as a "strong dis comfort". Patient also states she has had recent URI symptoms including nasal congestion and cough. LMP: June 02, describes it as "wood bucker and shorter in duration than normal" Pertinent PMHx/PSHx: PCOS, bicornuate uterus PCP: none TRAVEL OUTSIDE OF THE [place] IN LAST 30 DAYS: No - Related Data Allergies/Adverse Reactions: No Known Allergies Allergy (Verified 08/09/18 22:56) Past Medical History - General Information source: Patient - Social History Smoking Status: Current Every Day Smoker Cigarette use (# per day): Yes - 1 ppd Chew tobacco use (# tins/day): No Frequency of alcohol use: None Drug Abuse: None Lives with: Family Family History: Reviewed & Not Pertinent Patient has suicidal ideation: No Patient has homicidal ideation: No - Past Medical History Cardiac Medical History: Reports: Hx Hypertension Pulmonary Medical History: Reports: Hx Bronchitis Endocrine Medical History: Reports: Hx Diabetes Mellitus Type 2 Renal/ Medical History: Reports: Hx Ovarian Cysts, Other - PCOS Musculoskeletal Medical History: Reports Hx Arthritis Past Surgical History: Reports: Hx Oral Surgery, Hx Orthopedic Surgery - LEFT KNEE - Immunizations Hx Diphtheria, Pertussis, Tetanus Vaccination: Yes Review of Systems - Review of Systems Constitutional: No symptoms reported EENT: See HPI, Nose congestion Cardiovascular: No symptoms reported Respiratory: See HPI, Cough Gastrointestinal: See HPI, Abdominal pain Genitourinary: No symptoms reported Female Genitourinary: See HPI, Last menstrual period - Jun 02, Musculoskeletal: No symptoms reported Skin: No symptoms reported Hematologic/Lymphatic: No symptoms reported Neurological/Psychological: No symptoms reported -: Yes All other systems reviewed and negative Physical Exam - Vital signs Vitals: Temp Pulse Resp BP Pulse Ox 98.2 F 100 18 130/84 H 96 07/10/19 08:39 07/10/19 08:39 07/10/19 08:39 07/10/19 08:39 07/10/19 08:39 - Notes Notes: Physical Exam: General: Alert, appears well. HEENT: Normocephalic. Atraumatic. PERRL. Extraocular movements intact. Oropharynx clear. Nasal congestion. Neck: Supple. Non-tender. Respiratory: No respiratory distress. Rhonchi with forced cough consistent with smoking history. Cardiovascular: Regular rate and rhythm. Abdominal: Normal Inspection. Non-tender. No distension. Normal Bowel Sounds. Back: No gross abnormalities. Extremities: Moves all four extremities. Upper extremities: Normal inspection. Normal ROM. Lower extremities: Normal inspection. No edema. Normal ROM. Neurological: Normal cognition. AAOx4. Normal speech. Psychological: Normal affect. Normal Mood. Skin: Warm. Dry. Normal color. Course - Vital Signs Vital signs: Temp Pulse Resp BP Pulse Ox 98.2 F 100 18 130/84 H 96 07/10/19 08:39 07/10/19 08:39 07/10/19 08:39 07/10/19 08:39 07/10/19 08:39 - Laboratory Result Diagrams: 07/10/19 09:40 07/10/19 09:40 Laboratory results interpreted by me: 07/10/19 07/10/19 09:40 09:40 WBC 14.0 H Absolute Neuts (auto) 9.5 H BUN 5 L Creatinine 0.44 L Beta HCG, Quant 6628.80 H - Diagnostic Test Radiology reviewed: Image reviewed, Reports reviewed - Ultrasound shows a 5-week 4-day gestational sac with yolk sac in the right uterine horn of a bicornuate uterus. There is a moderate subchorionic bleed. Discharge - Discharge Clinical Impression: Intrauterine , Bicornuate uterus affecting in first trimester, antepartum, Pelvic pain affecting in first trimester, antepartum Subchorionic bleed Qualifiers: Fetus number: single or unspecified fetus Trimester: first trimester Qualified Code(s): O41.8X10 - Other specified disorders of amniotic fluid and membranes, first trimester, not applicable or unspecified; O46.8X1 - Other antepartum hemorrhage, first trimester Condition: Stable Disposition: HOME, SELF-CARE Additional Instructions: You are . care is best started as early in as possible. If you're unsure about continuing this , you should discuss this with your physician or with [facility] at [facility]. You should take only medications approved by your physician. Acetaminophen can safely be taken for minor pains. As a rule, medication for chronic conditions such as asthma or seizures can safely be continued. You should discuss with the physician every medicine you take. Any regular exercise program can be continued. Talk to your physician, however, before engaging in competitive or demanding sports. Alcohol, smoking, and "street drugs" are dangerous to your baby. Cocaine is especially dangerous. Don't use any illicit drugs! You have a 5-week 4-day in the right horn of your bicornuate uterus. The ultrasound showed a moderate subchorionic bleed. You will likely noticed some brownish bloody discharge over the next several days, this is nothing to be concerned about. If your pain suddenly increases, or you develop bright red bleeding, you should return to the emergency room for reevaluation. Call [facility] Friday to schedule an appointment to be seen this week for follow-up ultrasound. RETURN TO THE EMERGENCY ROOM IF ANY NEW OR WORSENING SYMPTOMS. Referrals: [facility] [Provider Group] - Follow up in 3-5 days (Call the office Friday to schedule an appointment this week.) Scribe Attestation: 07/10/19 12:50 I personally performed the services described in the documentation, reviewed and edited the documentation which was dictated to the scribe in my presence, and it accurately records my words and actions. I personally performed the services described in the documentation, reviewed and edited the documentation which was dictated to the scribe in my presence, and it accurately records my words and actions.
== END 2019-07-10 13:13 | disposition home or self-care (01) ==
LOC: ER 08:30
DX: O34.01 Maternal care for unspecified congenital malformation of uterus, first trimester (principal); Q51.3 Bicornate uterus; O41.8X10 Other specified disorders of amniotic fluid and membranes, first trimester, not applicable or unspecified; O26.891 Other specified pregnancy related conditions, first trimester; R10.2 Pelvic and perineal pain; R10.9 Unspecified abdominal pain; R42 Dizziness and giddiness; R10.30 Lower abdominal pain, unspecified; R09.81 Nasal congestion; R05 Cough; O16.1 Unspecified maternal hypertension, first trimester; O99.331 Smoking (tobacco) complicating pregnancy, first trimester; Z3A.01 Less than 8 weeks gestation of pregnancy
CPT/HCPCS: 36415; 76817; 80053; 81001; 83690; 84702; 85025; 99284

== ENCOUNTER 2019-07-12 16:56 | Emergency (ER) | payer SELFPAY ==
--- NOTE | 2019-07-12 17:34 | ER Document Report ---
ED Medical Screen (RME) - General Chief Complaint: OB Problem (<20wks) Stated Complaint: VAGINAL BLEEDING Time Seen by Provider: 07/12/19 17:27 Notes: Patient is a G4, P0 38-year-old female who presents the emergency department with a chief complaint of vaginal bleeding. Patient states that she was seen here 2 days ago for abdominal pain and dizziness. She is currently . Last menstrual cycle was June 01. Patient states that she started spotting this morning. Patient states that she is having rust color vaginal bleeding. She states that she has some nausea and lower pelvic pain. She has had some miscarriages in the past. Patient was offered Reglan and Tylenol and she refused both of them. Exam: Tender mid lower abdomen. I have greeted and performed a rapid initial assessment of this patient. A comprehensive ED assessment and evaluation of the patient, analysis of test results and completion of medical decision making process will be conducted by an additional ED providers. TRAVEL OUTSIDE OF THE [place] IN LAST 30 DAYS: No - Related Data Allergies/Adverse Reactions: No Known Allergies Allergy (Verified 07/12/19 17:21) Home Medications: vitamins Past Medical History - Social History Chew tobacco use (# tins/day): No Frequency of alcohol use: None Drug Abuse: None - Past Medical History Cardiac Medical History: Reports: Hx Hypertension Pulmonary Medical History: Reports: Hx Bronchitis Endocrine Medical History: Reports: Hx Diabetes Mellitus Type 1, Hx Diabetes Mellitus Type 2 Renal/ Medical History: Reports: Hx Ovarian Cysts. Denies: Hx Peritoneal Dialysis Musculoskeltal Medical History: Reports Hx Arthritis Past Surgical History: Reports: Hx Oral Surgery, Hx Orthopedic Surgery - LEFT KNEE - Immunizations Hx Diphtheria, Pertussis, Tetanus Vaccination: Yes Physical Exam - Vital signs Vitals: Temp Pulse BP Pulse Ox 98.2 F 82 143/99 H 100 07/12/19 17:02 07/12/19 17:02 07/12/19 17:02 07/12/19 17:02 Course - Vital Signs Vital signs: Temp Pulse Resp BP Pulse Ox 98.2 F 82 143/99 H 100 07/12/19 17:02 07/12/19 17:02 07/12/19 17:02 07/12/19 17:02
[2019-07-12 18:14] LABS: APPEARANCE,URINE CLEAR; BILIRUBIN,URINE NEGATIVE (NEGATIVE); COLOR,URINE COLORLESS; GLUCOSE, URINE NEGATIVE (NEGATIVE); KETONES,URINE NEGATIVE (NEGATIVE); PROTEIN,URINE NEGATIVE (NEGATIVE); URINE SPECIFIC GRAVITY 1.003; UROBILINOGEN,URINE NEGATIVE mg/dL (<2.0)
[2019-07-12 20:31] LABS: ABSOLUTE EOSINOPHILS # (AUTO) 0.6 10^3/uL (0.0-0.6); ABSOLUTE LYMPHOCYTES (AUTO) 4.7 10^3/uL (0.5-4.7); ABSOLUTE MONOCYTES (AUTO) 0.6 10^3/uL (0.1-1.4); ABSOLUTE NEUT (AUTO) 7.4 10^3/uL (1.7-8.2); BASOPHILS % (AUTO) 0.4 % (0-2); EOSINOPHILS % (AUTO) 4.8 % (0-6); HEMATOCRIT 42.5 % (36.0-47.0); HEMOGLOBIN 14.7 g/dL (12.0-15.5); LYMPHOCYTES % (AUTO) 35.4 % (13-45); MEAN CORPUSCULAR HEMOGLOBIN 32.1 pg (27.0-33.4); MEAN CORPUSCULAR HGB CONC 34.5 g/dL (32.0-36.0); MEAN CORPUSCULAR VOLUME 93 fl (80-97); MONOCYTES % (AUTO) 4.4 % (3-13); PLATELET COUNT 296 10^3/uL (150-450); RED BLOOD COUNT 4.57 10^6/uL (3.72-5.28); TOTAL CELLS COUNTED % (AUTO) 100 %; WHITE BLOOD COUNT 13.3 10^3/uL (4.0-10.5)
--- NOTE | 2019-07-12 20:34 | RADIOLOGY REPORT (SQ) ---
EXAM DESCRIPTION: US TRANSVAGINAL COMPLETED DATE/TME: 07/12/2019 17:32 CLINICAL HISTORY: 38 years, Female, vaginal bleeding COMPARISON: Prior study from 08/09/2018 TECHNIQUE: Axial 2-D grayscale images of the pelvis were acquired. Doppler was utilized. LIMITATIONS: None. FINDINGS: Uterus measures 8.2 x 4.1 x 7.0 cm in size. Two uterine horns are evident. An intrauterine gestational sac is identified within the right uterine horn with measurements as follows: Mean sac diameter is 0.99 cm [place]-rump length is 0.2 cm Yolk sac is visualized, measuring 2 mm cardiac motion is identified although heart rate measurement was not able to be obtained given the small size of the pole. A small amount of heterogenous material is suspected about the left uterine horn, nonspecific. Cervix is closed, measuring 2.9 cm in length. Right ovary measures 2.9 x 1.8 x 3.6 m in size. It demonstrates normal low resistance arterial waveforms/venous flow. In addition, it contains two adjacent complex hypoechoic lesions, one of which measures 1.3 x 1.0 x 1.2 cm in size and the other of which measures 1.2 x 1.0 x 1.2 cm in size. The left ovary was not visualized. IMPRESSION: Single live intrauterine located within the right ureteral horn of a suspected bicornuate uterus. cardiac motion is identified although the pole is too small to obtain a definitive heart rate measurement. Two complex hypoechoic lesions located adjacent to one another about the right ovary, presumably corresponding to functional cysts. These can be reassessed for resolution on follow-up pelvic ultrasound in 6-12 weeks. copyright 2010 [employer]- All Rights Reserved
[2019-07-12 20:54] LABS: ALBUMIN 3.7 g/dL (3.5-5.0); ALKALINE PHOSPHATASE 61 U/L (38-126); ANION GAP 10 (5-19); ASPARTATE AMINO TRANSFERASE 15 U/L (14-36); BILIRUBIN,DIRECT 0.1 mg/dL (0.0-0.4); BILIRUBIN,TOTAL 0.4 mg/dL (0.2-1.3); BLOOD UREA NITROGEN 7 mg/dL (7-20); CALCIUM 9.2 mg/dL (8.4-10.2); CARBON DIOXIDE 21 mmol/L (22-30); CHLORIDE 109 mmol/L (98-107); GLUCOSE 82 mg/dL (75-110); POTASSIUM 3.7 mmol/L (3.6-5.0); TOTAL PROTEIN 6.6 g/dL (6.3-8.2)
[2019-07-12] MEDS ORDERED: ALBUTEROL SULFATE HFA (90 MCG/PUFF) 8 GM MDI (1 MDI/ER DISP) IH ONE (22:10)
--- NOTE | 2019-07-12 22:12 | ER Document Report ---
HPI - HPI Patient complains to provider of: Vaginal bleeding Time Seen by Provider: 07/12/19 17:27 Onset: This morning Onset/Duration: Gradual Quality of pain: Cramping Pain Level: 2 Context: Patient is G4, P0. Patient states that she developed vaginal bleeding that started today. Patient denies any urinary symptoms. Patient denies any clots. Patient denies any lightheadedness or dizziness. Patient states she was seen here 2 days ago for dizziness. Associated Symptoms: Other - Pelvic cramping, vaginal bleeding. denies: Fever, Headache Exacerbated by: Denies Relieved by: Denies Similar symptoms previously: Yes Recently seen / treated by doctor: Yes - ROS ROS below otherwise negative: Yes Systems Reviewed and Negative: Yes All other systems reviewed and negative - CONSTITUTIONAL Constitutional: DENIES: Fever, Chills - NEURO Neurology: DENIES: Headache, Weakness - CARDIOVASCULAR Cardiovascular: DENIES: Chest pain - GASTROINTESTINAL Gastrointestinal: REPORTS: Abdominal Pain. DENIES: Nausea, Patient vomiting - URINARY Urinary: DENIES: Dysuria, Urgency, Frequency - REPRODUCTIVE Reproductive: REPORTS: :, Abnormal bleeding / discharge - MUSCULOSKELETAL Musculoskeletal: DENIES: Back Pain - DERM Skin Color: Normal Skin Problems: None Past Medical History - General Information source: Patient - Social History Smoking Status: Current Every Day Smoker Chew tobacco use (# tins/day): No Smoking Education Provided: Yes Frequency of alcohol use: None Drug Abuse: None Occupation: [employer] Lives with: Spouse/Significant other Family History: Reviewed & Not Pertinent Patient has suicidal ideation: No Patient has homicidal ideation: No Pulmonary Medical History: Reports: Hx Bronchitis Renal/ Medical History: Reports: Hx Ovarian Cysts. Denies: Hx Peritoneal Dialysis Musculoskeletal Medical History: Reports Hx Arthritis Past Surgical History: Reports: Hx Oral Surgery, Hx Orthopedic Surgery - LEFT KNEE - Immunizations Hx Diphtheria, Pertussis, Tetanus Vaccination: Yes Vertical Provider Document - CONSTITUTIONAL Agree With Documented VS: Yes Exam Limitations: No Limitations General Appearance: WD/WN, No Apparent Distress - INFECTION CONTROL TRAVEL OUTSIDE OF THE [place] IN LAST 30 DAYS: No - HEENT HEENT: Atraumatic, Normocephalic - NECK Neck: Normal Inspection, Supple. negative: Lymphadenopathy-Left, Lymphadenopathy-Right - RESPIRATORY Respiratory: No Respiratory Distress, Wheezing - CARDIOVASCULAR Cardiovascular: Regular Rate, Regular Rhythm, No Murmur - GI/ABDOMEN Gastrointestinal: Abdomen Soft, Abdomen Tender - lower pelvic - BACK Back: Normal Inspection. negative: CVA Tenderness-Right, CVA Tenderness-Left - MUSCULOSKELETAL/EXTREMETIES Musculoskeletal/Extremeties: MAEW - NEURO Level of Consciousness: Awake, Alert, Appropriate Motor/Sensory: No Motor Deficit - DERM Integumentary: Warm, Dry, No Rash Course - Re-evaluation Re-evalutation: 07/12/19 22:08 Reviewed patient's results from yesterday. Patient quantitative hCG test has increased compared to results from 2 days ago. Patient also has had increased development on ultrasound with a pole with noted cardiac activity today. Patient advised of right ovarian lesions concerning for cyst that she would need to have an ultrasound in 6 to 12 weeks to further evaluate. Patient reports some vaginal bleeding, no clots. Patient with stable vital signs and stable H&H. Patient encouraged to be on pelvic rest and to follow-up with [facility] for further evaluation. - Vital Signs Vital signs: Temp Pulse Resp BP Pulse Ox 98.2 F 82 143/99 H 100 07/12/19 17:02 07/12/19 17:02 07/12/19 17:02 07/12/19 17:02 - Laboratory Result Diagrams: 07/12/19 20:15 07/12/19 20:15 Laboratory results interpreted by me: 07/12/19 07/12/19 07/12/19 17:35 20:15 20:15 WBC 13.3 H Chloride 109 H Carbon Dioxide 21 L Creatinine 0.43 L Beta HCG, Quant 39237.00 H Urine Blood MODERATE H 07/12/19 22:09 Labs- Entire Visit 07/12/19 07/12/19 07/12/19 17:35 20:15 20:15 WBC 13.3 H RBC 4.57 Hgb 14.7 Hct 42.5 MCV 93 MCH 32.1 MCHC 34.5 RDW 13.0 Plt Count 296 Lymph % (Auto) 35.4 [place] % (Auto) 4.4 Eos % (Auto) 4.8 Baso % (Auto) 0.4 Absolute Neuts (auto) 7.4 Absolute Lymphs (auto) 4.7 Absolute Monos (auto) 0.6 Absolute Eos (auto) 0.6 Absolute Basos (auto) 0.0 Seg Neutrophils % 55.0 Sodium 139.6 Potassium 3.7 Chloride 109 H Carbon Dioxide 21 L Anion Gap 10 BUN 7 Creatinine 0.43 L Est GFR ( Amer) > 60 Est GFR (MDRD) Non-Af > 60 Glucose 82 Calcium 9.2 Total Bilirubin 0.4 Direct Bilirubin 0.1 Neonat Total Bilirubin Not Reportable Neonat Direct Bilirubin Not Reportable Neonat Indirect Bili Not Reportable AST 15 ALT 13 Alkaline Phosphatase 61 Total Protein 6.6 Albumin 3.7 Beta HCG, Quant 01878.00 H Total Beta HCG POSITIVE Urine Color COLORLESS Urine Appearance CLEAR Urine pH 7.0 Ur Specific [place] 1.003 Urine Protein NEGATIVE Urine Glucose (UA) NEGATIVE Urine Ketones NEGATIVE Urine Blood MODERATE H Urine Nitrite (Reflex) NEGATIVE Urine Bilirubin NEGATIVE Urine Urobilinogen NEGATIVE Leukocyte Esterase Rfl NEGATIVE Urine RBC (Auto) 1 Urine Bacteria (Auto) TRACE Urine WBC (Reflex) < 1 Squamous Epi Cells Auto <1 Urine Mucus (Auto) RARE Urine Ascorbic Acid NEGATIVE - Diagnostic Test Radiology reviewed: Reports reviewed Discharge - Discharge Clinical Impression: Intrauterine , Bicornuate uterus affecting in first trimester, antepartum, Pelvic pain affecting in first trimester, antepartum Subchorionic bleed Qualifiers: Fetus number: single or unspecified fetus Trimester: first trimester Qualified Code(s): O41.8X10 - Other specified disorders of amniotic fluid and membranes, first trimester, not applicable or unspecified Upper respiratory infection Qualifiers: URI type: unspecified URI Qualified Code(s): J06.9 - Acute upper respiratory infection, unspecified Condition: Stable Disposition: HOME, SELF-CARE Instructions: Acetaminophen, Bleeding During Early ([facility]), Inhaled Bronchodilators ([facility]), Upper Respiratory Illness ([facility]) Additional Instructions: Return immediately for any new or worsening symptoms Followup with your primary care provider, call tomorrow to make a followup appointment Forms: Smoking Cessation Education, Return to Work Referrals: HEALTH DEPT,[facility] [NO LOCAL MD] - Follow up tomorrow
[2019-07-12 22:35] VITALS: BP 120/74
== END 2019-07-12 22:40 | disposition home or self-care (01) ==
LOC: ER 16:56
DX: O34.01 Maternal care for unspecified congenital malformation of uterus, first trimester (principal); Q51.3 Bicornate uterus; O41.8X10 Other specified disorders of amniotic fluid and membranes, first trimester, not applicable or unspecified; J06.9 Acute upper respiratory infection, unspecified; N93.8 Other specified abnormal uterine and vaginal bleeding; R10.2 Pelvic and perineal pain; R10.9 Unspecified abdominal pain; F17.200 Nicotine dependence, unspecified, uncomplicated
CPT/HCPCS: 99284; 36415; 84702; 85025; 80053; 81001; 76817; 93976; J3490

== ENCOUNTER 2019-07-16 15:09 | Emergency (ER) | payer SELFPAY ==
--- NOTE | 2019-07-16 15:20 | ER Document Report ---
ED Medical Screen (RME) - General Chief Complaint: Abdominal Pain Stated Complaint: ABDOMINAL PAIN Time Seen by Provider: 07/16/19 15:16 TRAVEL OUTSIDE OF THE [place] IN LAST 30 DAYS: No - HPI Notes: 07/16/19 15:19 Patient is a 38-year-old female G4, P0 with 3 previous miscarriages who presents complaining of lower pelvic pain and passing a 2 to 3 inch piece of tissue with bleeding today. Patient was here 4 days ago and was told that she needed to take it easy at that time, but did note an intrauterine . Blood type is B+ by historical record. No fever. I have treated and performed a rapid initial assessment of this patient. A comprehensive ED assessment and evaluation of the patient, analysis of test results and completion of medical decision making process will be conducted by additional ED providers. PHYSICAL EXAMINATION: GENERAL: Well-appearing, well-nourished and in no acute distress. A&Ox4. Answers questions appropriately. - Related Data Allergies/Adverse Reactions: No Known Allergies Allergy (Verified 07/12/19 17:21) Past Medical History - Past Medical History Cardiac Medical History: Reports: Hx Hypertension Pulmonary Medical History: Reports: Hx Bronchitis Endocrine Medical History: Reports: Hx Diabetes Mellitus Type 1, Hx Diabetes Mellitus Type 2 Renal/ Medical History: Reports: Hx Ovarian Cysts. Denies: Hx Peritoneal Dialysis Musculoskeltal Medical History: Reports Hx Arthritis Past Surgical History: Reports: Hx Oral Surgery, Hx Orthopedic Surgery - LEFT KNEE - Immunizations Hx Diphtheria, Pertussis, Tetanus Vaccination: Yes Physical Exam - Vital signs Vitals: Temp Pulse Resp BP Pulse Ox 97.9 F 103 H 18 141/90 H 100 07/16/19 15:12 07/16/19 15:12 07/16/19 15:12 07/16/19 15:12 07/16/19 15:12 Course - Vital Signs Vital signs: Temp Pulse Resp BP Pulse Ox 97.9 F 103 H 18 141/90 H 100 07/16/19 15:12 07/16/19 15:12 07/16/19 15:12 07/16/19 15:12 07/16/19 15:12
--- NOTE | 2019-07-16 17:51 | RADIOLOGY REPORT (SQ) ---
EXAM DESCRIPTION: U/S OB TRANSVAGINAL W/O DOP COMPLETED DATE/TIME: 07/16/2019 5:38 pm REASON FOR STUDY: bleeding, approx 6wks preg, passed large clot COMPARISON: 07/10/2019 TECHNIQUE: Transvaginal static and realtime grayscale images acquired of the pelvis. Additional rory cted spectral and color Doppler images recorded. All images stored on PACs. bHCG: Not available. CLINICAL DATES: LMP 06/01/2019. 6 weeks 3 days. LIMITATIONS: None. FINDINGS: FETUS: Single Living intrauterine . ULTRASOUND EGA: 6 weeks 2 days. ULTRASOUND CHELSIE: 03/08/2020 EFW: Not applicable less than 20 weeks. CRL: 0.38 cm FHR: 104 beats per minute. SURVEY: Too early to assess. AMNIOTIC FLUID: Adequate amount. PLACENTA: Not yet developed due to early gestation. SUBCHORIONIC BLEED: Yes. SIZE OF BLEED: 2 cm. UTERUS: Bicornuate uterus. Gestational sac is in the right horn. CERVICAL LENGTH: 4 cm. Closed. RIGHT ADNEXA: Normal ovary with normal vascular flow. 2.9 x 3.2 x 2.1 cm. There are 2 small complex hypoechoic lesions. No adnexal free fluid. No adnexal masses. LEFT ADNEXA: Ovary not seen. No adnexal free fluid. No adnexal masses. FREE FLUID: None. OTHER: No other significant finding. IMPRESSION: LIVING INTRAUTERINE . EGA 6 weeks 2 days. Trimester of : First trimester - 0 to 13 weeks. TECHNICAL DOCUMENTATION: JOB ID: [id number] [employer]- All Rights Reserved Reading location - IP/workstation name: [email or web address]
[2019-07-16 20:15] VITALS: BP 107/58
--- NOTE | 2019-07-16 20:39 | ER Document Report ---
ED General - General Chief Complaint: Vaginal Bleeding Stated Complaint: ABDOMINAL PAIN Time Seen by Provider: 07/16/19 15:16 Primary Care Provider: GEORGINA GARNICA MD [ACTIVE STAFF] - 07/21/19 TRAVEL OUTSIDE OF THE [place] IN LAST 30 DAYS: No - HPI Notes: 38-year-old female to the emergency department with complaints of worsening vaginal bleeding and lower abdominal pain for the past several days. She was seen here on the for vaginal bleeding. She states that she is . 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 She has no living children. She states that she has an appointment with an [facility] on July [facility]. However she got concerned this morning when she saw a large clot and continues to have pain. She denies any other symptoms. She states that she is blood type B+. She did have an ultrasound on the here but there was no definite pole or heart rate at that time. - Related Data Allergies/Adverse Reactions: No Known Allergies Allergy (Verified 07/12/19 17:21) Past Medical History - General Information source: Patient - Social History Smoking Status: Current Some Day Smoker Chew tobacco use (# tins/day): No Drug Abuse: None Family History: Reviewed & Not Pertinent Patient has suicidal ideation: No Patient has homicidal ideation: No - Past Medical History Cardiac Medical History: Reports: Hx Hypertension Pulmonary Medical History: Reports: Hx Bronchitis Endocrine Medical History: Reports: Hx Diabetes Mellitus Type 1, Hx Diabetes Mellitus Type 2 Renal/ Medical History: Reports: Hx Ovarian Cysts. Denies: Hx Peritoneal Dialysis Musculoskeletal Medical History: Reports Hx Arthritis Past Surgical History: Reports: Hx Oral Surgery, Hx Orthopedic Surgery - LEFT KNEE - Immunizations Hx Diphtheria, Pertussis, Tetanus Vaccination: Yes Review of Systems - Review of Systems Constitutional: denies: Chills, Fever EENT: No symptoms reported Cardiovascular: denies: Chest pain, Palpitations, Heart racing, Orthopnea, Dyspnea, Syncope, Dizziness, Lightheaded Respiratory: denies: Cough, Short of breath Gastrointestinal: Abdominal pain. denies: Diarrhea, Nausea, Vomiting Genitourinary: denies: Frequency, Flank pain, Hematuria Female Genitourinary: , Vaginal bleeding Musculoskeletal: No symptoms reported Skin: No symptoms reported Hematologic/Lymphatic: No symptoms reported Neurological/Psychological: No symptoms reported -: Yes All other systems reviewed and negative Physical Exam - Vital signs Vitals: Temp Pulse Resp BP Pulse Ox 97.9 F 103 H 18 141/90 H 100 07/16/19 15:12 07/16/19 15:12 07/16/19 15:12 07/16/19 15:12 07/16/19 15:12 Interpretation: Normal - General General appearance: Appears well, Alert In distress: None - HEENT Head: Normocephalic, Atraumatic Eyes: Normal Pupils: PERRL - Respiratory Respiratory status: No respiratory distress Chest status: Nontender Breath sounds: Normal Chest palpation: Normal - Cardiovascular Rhythm: Regular Heart sounds: Normal auscultation Murmur: No - Abdominal Inspection: Normal Distension: No distension Bowel sounds: Normal Tenderness: Nontender. No: Tender, McBurney's point, Ny's sign, Guarding, Rebound Organomegaly: No organomegaly - Genitourinary External exam: Normal Speculum exam: Cervix closed Vaginal bleeding: Mild Bimanuel exam: Normal. No: Cervical motion tender, Bladder/Urethral tender, Adnexal mass, Adnexal tenderness - Back Back: Normal, Nontender. No: Deformity/step-off, CVA tenderness - Neurological Neuro grossly intact: Yes Cognition: Normal Orientation: AAOx4 Rick Coma Scale Eye Opening: Spontaneous Rick Coma Scale Verbal: Oriented [place] Coma Scale Motor: Obeys Commands [place] Coma Scale Total: 15 Speech: Normal Cranial nerves: Normal Cerebellar coordination: Normal. 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 No: Pronator drift Sensory: Normal - Psychological Associated symptoms: Normal affect, Normal mood - Skin Skin Temperature: Warm Skin Moisture: Dry Skin Color: Normal Course - Re-evaluation Re-evalutation: Noted beta quant which has increased since she was last year. Is not quite risen appropriately but none the last has doubled. Noted ultrasound result which now shows a rosalia gestational sac and there is a heartbeat. Albeit the heart rate is low at 104. She still has a subchorionic hemorrhage. On pelvic exam her cervix is closed and she has very minimal active bleeding. Discussed with Dr. Garnica since this is the patient's second visit and she does not have appropriate close follow-up. Dr. Garnica states that it is reassuring that now she has a heartbeat but again it is concerning that it so low. She states that he start patient on prometria and it may help. She states to give the patient 200 mg every night vaginally. But she would like for the patient to be seen in the office on Friday without fail for repeat testing and likely repeat ultrasound. Discussed plan with patient and she agrees. Urged to return if she is having severe vaginal bleeding, dizziness, chest pain, passing out. She agrees with the plan. Laboratory 07/16/19 07/16/19 15:43 19:20 Beta HCG, Quant 86700.00 H Total Beta HCG POSITIVE Blood Type B POSITIVE Rhogam Indicated RHOGAM NOT INDICATED - Vital Signs Vital signs: Temp Pulse Resp BP Pulse Ox 98.4 F 73 18 107/58 L 97 07/16/19 20:13 07/16/19 20:13 07/16/19 20:13 07/16/19 20:13 07/16/19 20:13 - Laboratory Laboratory results interpreted by me: 07/16/19 15:43 Beta HCG, Quant 78878.00 H - Diagnostic Test Radiology reviewed: Image reviewed, Reports reviewed Discharge - Discharge Clinical Impression: Threatened miscarriage Condition: Stable Disposition: HOME, SELF-CARE Instructions: Threatened Miscarriage ([facility]) Additional Instructions: CALL DR. GARNICA'S OFFICE TO MAKE AN APPOINTMENT FOR [facility] THIS WEEK. RETURN IF ANY CONCERNS. TAKE PROMETRIUM EVERY NIGHT. NO SEX OR DOUCHING. Prescriptions: Progesterone, Micronized [Prometrium] 200 mg VG QHS #10 capsule Forms: Return to Work Referrals: GEORGINA GARNICA MD [ACTIVE STAFF] - 07/21/19
== END 2019-07-16 20:51 | disposition home or self-care (01) ==
LOC: ER 15:09
DX: O20.0 Threatened abortion (principal); O26.899 Other specified pregnancy related conditions, unspecified trimester; R10.30 Lower abdominal pain, unspecified; O24.919 Unspecified diabetes mellitus in pregnancy, unspecified trimester; O16.9 Unspecified maternal hypertension, unspecified trimester; O99.330 Smoking (tobacco) complicating pregnancy, unspecified trimester; F17.200 Nicotine dependence, unspecified, uncomplicated; O36.8390 Maternal care for abnormalities of the fetal heart rate or rhythm, unspecified trimester, not applicable or unspecified; Z3A.00 Weeks of gestation of pregnancy not specified
CPT/HCPCS: 36415; 76817; 84702; 86900; 86901; 99284

== ENCOUNTER 2019-07-18 17:58 | Emergency (ER) | payer SELFPAY ==
--- NOTE | 2019-07-18 18:32 | ER Document Report ---
ED Medical Screen (RME) - General Chief Complaint: Vaginal Bleeding Stated Complaint: VAGINAL BLEEDING,VOMITING Time Seen by Provider: 07/18/19 18:23 Mode of Arrival: Ambulatory Information source: Patient Notes: Patient is a 30-year-old female presenting to the emergency department with concern for vaginal bleeding in the setting of . Patient reports she is approximately 6 weeks , states she was told she is probably having a miscarriage. States that she had passed multiple large clots and wanted to be rechecked. I have greeted and performed a rapid initial assessment of this patient. A comprehensive ED assessment and evaluation of the patient, analysis of test results and completion of the medical decision making process will be conducted by additional ED providers. I have specifically instructed the patient or family members with the patient to immediately return to any nursing staff should anything change in the patient's condition or with their chief complaint. This medical record was dictated with voice recognizing software. There may be grammatical, syntax errors that are unintended. TRAVEL OUTSIDE OF THE [place] IN LAST 30 DAYS: No - Related Data Allergies/Adverse Reactions: No Known Allergies Allergy (Verified 07/12/19 17:21) Past Medical History - Social History Frequency of alcohol use: None Drug Abuse: None - Past Medical History Cardiac Medical History: Reports: Hx Hypertension Pulmonary Medical History: Reports: Hx Bronchitis Endocrine Medical History: Reports: Hx Diabetes Mellitus Type 1, Hx Diabetes Mellitus Type 2 Renal/ Medical History: Reports: Hx Ovarian Cysts. Denies: Hx Peritoneal Dialysis Musculoskeltal Medical History: Reports Hx Arthritis Past Surgical History: Reports: Hx Oral Surgery, Hx Orthopedic Surgery - LEFT KNEE - Immunizations Hx Diphtheria, Pertussis, Tetanus Vaccination: Yes Physical Exam - Vital signs Vitals: Temp Pulse Resp BP Pulse Ox 98.5 F 92 14 149/92 H 98 07/18/19 18:16 07/18/19 18:16 07/18/19 18:16 07/18/19 18:16 07/18/19 18:16 Course - Vital Signs Vital signs: Temp Pulse Resp BP Pulse Ox 98.5 F 92 14 149/92 H 98 07/18/19 18:16 07/18/19 18:16 07/18/19 18:16 07/18/19 18:16 07/18/19 18:16
[2019-07-18] MEDS ORDERED: PROMETHAZINE HCL 25 MG TABLET PO ONE (18:38)
[2019-07-18] MEDS ORDERED: OXYCODONE-ACETAMINOPHEN 5-325 MG TABLET PO ONE (18:38)
[2019-07-18 18:54] LABS: ABSOLUTE BASOPHILS # (AUTO) 0.1 10^3/uL (0.0-0.2); ABSOLUTE EOSINOPHILS # (AUTO) 0.6 10^3/uL (0.0-0.6); ABSOLUTE LYMPHOCYTES (AUTO) 4.4 10^3/uL (0.5-4.7); ABSOLUTE MONOCYTES (AUTO) 0.7 10^3/uL (0.1-1.4); ABSOLUTE NEUT (AUTO) 9.2 10^3/uL (1.7-8.2); BASOPHILS % (AUTO) 0.6 % (0-2); HEMATOCRIT 41.3 % (36.0-47.0); HEMOGLOBIN 14.4 g/dL (12.0-15.5); LYMPHOCYTES % (AUTO) 29.3 % (13-45); MEAN CORPUSCULAR HEMOGLOBIN 32.6 pg (27.0-33.4); MEAN CORPUSCULAR HGB CONC 34.8 g/dL (32.0-36.0); MEAN CORPUSCULAR VOLUME 94 fl (80-97); MONOCYTES % (AUTO) 4.6 % (3-13); PLATELET COUNT 298 10^3/uL (150-450); RED BLOOD COUNT 4.41 10^6/uL (3.72-5.28); RED CELL DISTRIBUTION WIDTH 12.9 % (11.5-14.0); SEGMENTED NEUTROPHILS % (AUTO) 61.5 % (42-78); TOTAL CELLS COUNTED % (AUTO) 100 %
--- NOTE | 2019-07-18 19:23 | RADIOLOGY REPORT (SQ) ---
EXAM DESCRIPTION: U/S OB TRANSVAGINAL W/O DOP COMPLETED DATE/TIME: 07/18/2019 7:10 pm REASON FOR STUDY: preg, vag bleeding COMPARISON: 07/16/2019, 07/10/2019 TECHNIQUE: Transvaginal static and realtime grayscale images acquired of the pelvis. Additional rory cted spectral and color Doppler images recorded. All images stored on PACs. [facility] [place] CLINICAL DATES: 6 weeks, 5 days LIMITATIONS: None. FINDINGS: FETUS: Single Living intrauterine . ULTRASOUND EGA: 6 weeks, 4 days ULTRASOUND CHELSIE: 03/07/2020 CRL: 0.7 cm FHR: 100 beats per minute. 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 CERVICAL LENGTH: 3.3 cm Closed. RIGHT ADNEXA: Normal ovary with normal vascular flow. No adnexal free fluid. No adnexal masses. LEFT ADNEXA: Ovary not identified due to poor acoustical window. No adnexal free fluid. No adnexal masses. FREE FLUID: None. OTHER: No other significant finding. IMPRESSION: Redemonstrated intrauterine within the right horn of a probable bicornuate josafat corky, uterine anatomy not completely evaluated. Sonographic gestational age 6 weeks, 4 days. h eart rate 100 beats per minute. Trimester of : First trimester - 0 to 13 weeks. TECHNICAL DOCUMENTATION: JOB ID: [id number] [employer]- All Rights Reserved rev Reading location - IP/workstation name: [email or web address]
--- NOTE | 2019-07-18 20:22 | ER Document Report ---
ED General - General Chief Complaint: Vaginal Bleeding Stated Complaint: VAGINAL BLEEDING,VOMITING Time Seen by Provider: 07/18/19 18:23 Mode of Arrival: Ambulatory Notes: 38-year old female G3, P0 presents today with complaints increased vaginal bleeding and abdominal cramping. Patient reports she is been to the emergency department this is her third visit for this . She reports that she was told she was going to have a miscarriage. She has an appoint with Dr. Taylor on Friday. She reports she was at work today and started having increased abdominal pain and vaginal bleeding. She reports she passed a clot. Denies fever vomiting diarrhea. Denies pain with void. Reports she is feeling better she took a Percocet and had something for nausea. TRAVEL OUTSIDE OF THE [place] IN LAST 30 DAYS: No - HPI Onset: This afternoon Onset/Duration: Sudden Quality of pain: Cramping Severity: Severe Associated symptoms: Nausea Exacerbated by: Denies Relieved by: Denies Similar symptoms previously: Yes Recently seen / treated by doctor: Yes - Related Data Allergies/Adverse Reactions: No Known Allergies Allergy (Verified 07/12/19 17:21) Past Medical History - General Information source: Patient - Social History Smoking Status: Current Every Day Smoker Frequency of alcohol use: None Drug Abuse: None Occupation: [employer] Lives with: Family Family History: Reviewed & Not Pertinent Patient has suicidal ideation: No Patient has homicidal ideation: No - Past Medical History Cardiac Medical History: Reports: Hx Hypertension Pulmonary Medical History: Reports: Hx Bronchitis Endocrine Medical History: Reports: Hx Diabetes Mellitus Type 1, Hx Diabetes Mellitus Type 2 Renal/ Medical History: Reports: Hx Ovarian Cysts. Denies: Hx Peritoneal Dialysis Musculoskeletal Medical History: Reports Hx Arthritis Past Surgical History: Reports: Hx Oral Surgery, Hx Orthopedic Surgery - LEFT KNEE - Immunizations Hx Diphtheria, Pertussis, Tetanus Vaccination: Yes Review of Systems - Review of Systems Notes: Review HPI for review of systems., All other systems negative Physical Exam - Vital signs Vitals: Temp Pulse Resp BP Pulse Ox 98.5 F 92 14 149/92 H 98 07/18/19 18:16 07/18/19 18:16 07/18/19 18:16 07/18/19 18:16 07/18/19 18:16 - General General appearance: Alert, Anxious In distress: None - HEENT Head: Normocephalic Eyes: Normal Conjunctiva: Normal Neck: Normal, Supple. No: Lymphadenopathy - Respiratory Respiratory status: No respiratory distress Chest status: Nontender Breath sounds: Normal Chest palpation: Normal - Cardiovascular Rhythm: Regular Heart sounds: Normal auscultation Murmur: No - Abdominal Inspection: Normal Distension: No distension Bowel sounds: Normal Tenderness: Tender Organomegaly: No organomegaly - Back Back: Normal. No: CVA tenderness - Extremities General upper extremity: Normal ROM General lower extremity: Normal ROM - Neurological Neuro grossly intact: Yes Cognition: Normal Orientation: AAOx4 [place] Coma Scale Eye Opening: Spontaneous Rick Coma Scale Verbal: Oriented [place] Coma Scale Motor: Obeys Commands [place] Coma Scale Total: 15 Speech: Normal - Psychological Associated symptoms: Normal affect, Normal mood - Skin Skin Temperature: Warm Skin Moisture: Dry Skin Color: Normal Course - Re-evaluation Re-evalutation: 07/18/19 21:23 38-year-old female G3, P0 female presents today with increased abdominal pain and vaginal bleeding. Patient reports this is her third visit in the last week for the same symptoms. Does have an appoint with Dr. Taylor on Friday. She reports she is at work today and started having abdominal pain and passive blood clot. Leukocytosis at 15 but no shift. hCG trending up ultrasound shows single IUP 6 weeks 4 days with a heart rate of 100. Patient was updated on all results of ultrasound. She was instructed to rest follow-up with Dr. Taylor as scheduled. She was also instructed she started having severe pain vaginal bleeding to return the emergency department for reevaluation. She verbalized understanding to all instructions. She reports she is feeling better and feels safe to be discharged home. 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 Sonographic gestational age 6 weeks, 4 days. heart rate 100 beats per minute. Trimester of : First trimester - 0 to 13 weeks. Dictation of this chart was performed using voice recognition software; therefore, there may be some unintended grammatical errors. - Vital Signs Vital signs: Temp Pulse Resp BP Pulse Ox 98.2 F 84 15 126/78 H 97 07/18/19 20:32 07/18/19 20:32 07/18/19 20:32 07/18/19 20:32 07/18/19 20:32 - Laboratory Result Diagrams: 07/18/19 18:38 Laboratory results interpreted by me: 07/18/19 07/18/19 18:38 18:38 WBC 15.0 H Absolute Neuts (auto) 9.2 H Beta HCG, Quant 68378.00 H - Diagnostic Test Radiology reviewed: Image reviewed, Reports reviewed Discharge - Discharge Clinical Impression: Vaginal bleeding during , Threatened miscarriage Condition: Stable Disposition: HOME, SELF-CARE Instructions: Bleeding During Early ([facility]), Threatened Miscarriage ([facility]) Additional Instructions: *You have been evaluated for vaginal bleeding during threatened miscarriage abdominal pain *Follow up with Dr. Taylor on Friday as scheduled *Avoid sexual intercourse until follow up *Return to ED for worsening condition, changes, needs, worsening bleeding increasing abdominal pain concerns Monitor your blood pressure. Your blood pressure was elevated today. This may be because you were anxious, in pain or because you need medication. It is important to follow up with your primary care provider for full evaluation. Forms: Elevated Blood Pressure, Return to Work
[2019-07-18 20:34] VITALS: BP 126/78
== END 2019-07-18 20:34 | disposition home or self-care (01) ==
LOC: ER 17:58
DX: O20.0 Threatened abortion (principal); Z3A.01 Less than 8 weeks gestation of pregnancy
CPT/HCPCS: 36415; 76817; 84702; 85025; 99284

== ENCOUNTER 2019-07-30 07:10 | Emergency (ER) | payer SELFPAY ==
[2019-07-30 07:46] LABS: ABSOLUTE BASOPHILS # (AUTO) 0.1 10^3/uL (0.0-0.2); ABSOLUTE EOSINOPHILS # (AUTO) 0.5 10^3/uL (0.0-0.6); ABSOLUTE LYMPHOCYTES (AUTO) 2.7 10^3/uL (0.5-4.7); ABSOLUTE MONOCYTES (AUTO) 0.7 10^3/uL (0.1-1.4); ABSOLUTE NEUT (AUTO) 10.4 10^3/uL (1.7-8.2); BASOPHILS % (AUTO) 0.4 % (0-2); EOSINOPHILS % (AUTO) 3.7 % (0-6); HEMATOCRIT 38.1 % (36.0-47.0); HEMOGLOBIN 13.3 g/dL (12.0-15.5); LYMPHOCYTES % (AUTO) 18.7 % (13-45); MEAN CORPUSCULAR HEMOGLOBIN 32.3 pg (27.0-33.4); MEAN CORPUSCULAR HGB CONC 34.8 g/dL (32.0-36.0); MEAN CORPUSCULAR VOLUME 93 fl (80-97); MONOCYTES % (AUTO) 4.7 % (3-13); PLATELET COUNT 264 10^3/uL (150-450); RED BLOOD COUNT 4.11 10^6/uL (3.72-5.28); RED CELL DISTRIBUTION WIDTH 12.9 % (11.5-14.0); SEGMENTED NEUTROPHILS % (AUTO) 72.5 % (42-78); TOTAL CELLS COUNTED % (AUTO) 100 %; WHITE BLOOD COUNT 14.3 10^3/uL (4.0-10.5)
[2019-07-30] MEDS ORDERED: NORMAL SALINE 1000 ML 1,000 ML IV ONE (08:23)
--- NOTE | 2019-07-30 08:25 | ER Document Report ---
ED GI/ - General Chief Complaint: Vag Bleeding, +preg <12wks Stated Complaint: VAGINAL BLEEDING Time Seen by Provider: 07/30/19 08:02 Primary Care Provider: [facility] [Provider Group] - Follow up tomorrow Mode of Arrival: Ambulatory Information source: Patient Notes: Patient is currently 8 weeks . Patient reports vaginal bleeding off and on during this . 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 Patient reports nausea and dizziness today. Patient denies any dysuria or concerns about STI. Patient does report lower pelvic and low back pain. TRAVEL OUTSIDE OF THE [place] IN LAST 30 DAYS: No - HPI Patient complains to provider of: Pelvic pain, , Vaginal bleeding. No: Vomiting Onset: This morning Timing/Duration: Better Quality of pain: Cramping Pain Level: 2 Location: Pelvis Vaginal bleeding (Compared to normal period): Sr. Manager Menstrual period history: Sexual history: Active Associated symptoms: Nausea. 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 Denies: Hx Peritoneal Dialysis Musculoskeletal Medical History: Reports Hx Arthritis Past Surgical History: Reports: Hx Oral Surgery, Hx Orthopedic Surgery - LEFT KNEE - Immunizations Hx Diphtheria, Pertussis, Tetanus Vaccination: Yes Review of Systems - Review of Systems Constitutional: No symptoms reported. denies: Fever, Recent illness EENT: No symptoms reported Cardiovascular: Dizziness. denies: Chest pain Respiratory: No symptoms reported. denies: Cough, Short of breath Gastrointestinal: Abdominal pain, Nausea. denies: Vomiting Genitourinary: No symptoms reported Female Genitourinary: , Vaginal bleeding. denies: Vaginal discharge Musculoskeletal: Back pain Skin: No symptoms reported Hematologic/Lymphatic: No symptoms reported Neurological/Psychological: No symptoms reported Physical Exam - Vital signs Vitals: Temp Pulse Resp BP Pulse Ox 97.5 F 103 H 20 147/86 H 100 07/30/19 07:13 07/30/19 07:13 07/30/19 07:13 07/30/19 07:13 07/30/19 07:13 - General General appearance: Appears well, Alert In distress: None - HEENT Head: Normocephalic, Atraumatic Eyes: Normal Conjunctiva: Normal Nasal: Normal Mouth/Lips: Normal Mucous membranes: Normal Neck: Normal, Supple. No: Lymphadenopathy - Respiratory Respiratory status: No respiratory distress Chest status: Nontender Breath sounds: Normal. No: Rales, Rhonchi, Stridor, Wheezing Chest palpation: Normal - Cardiovascular Rhythm: Regular Heart sounds: S1 appreciated, S2 appreciated - Abdominal Inspection: Normal Distension: No distension Bowel sounds: Normal Tenderness: Tender - Lower pelvic Organomegaly: No organomegaly - Back Back: Normal, Nontender. No: CVA tenderness - Extremities General upper extremity: Normal inspection, Nontender, Normal ROM General lower extremity: Normal inspection, Nontender, Normal ROM - Neurological Neuro grossly intact: Yes Cognition: Normal Orientation: AAOx4 Rick Coma Scale Eye Opening: Spontaneous Rick Coma Scale Verbal: Oriented Rick Coma Scale Motor: Obeys Commands [place] Coma Scale Total: 15 - Psychological Associated symptoms: Normal affect, Normal mood - Skin Skin Temperature: Warm Skin Moisture: Dry Skin Color: Normal Course - Re-evaluation Re-evalutation: 07/30/19 09:47 Radiologist called stating that there are no heart tones noted on ultrasound today suspicious for demise. States that based on crown-rump length ultrasound should demonstrate heart tones. 07/30/19 10:39 Patient denies any active vaginal bleeding at this time. Patient feels that pain symptoms are manageable. Call placed to on-call OB awaiting return call at this time. 07/30/19 11:03 consulted regarding patient's presentation. Discussed ultrasound findings, current status, vital signs hemoglobin as well as quantitative hCG test. Recommends giving patient 800 mcg of Cytotec orally and having her follow-up in the office. 07/30/19 11:[address] Chong who is agreeable with this plan of care at this time. Discussed plan of care with patient and side effect profile of medication. Patient advised that there is a possibility that she may need additional dosing. Patient encouraged to call the JUDGE'S CLERK office today to make a follow-up appointment. Patient advised of worsening signs or symptoms that she should return immediately for such as increased pain, vomiting, excessive bleeding, lightheadedness dizziness or any worrisome symptoms. - Vital Signs Vital signs: Temp Pulse Resp BP Pulse Ox 97.2 F 82 14 134/98 H 100 07/30/19 11:28 07/30/19 11:28 07/30/19 11:28 07/30/19 11:28 07/30/19 11:28 - Laboratory Result Diagrams: 07/30/19 07:31 Laboratory results interpreted by me: 07/30/19 07/30/19 07/30/19 07:31 07:31 08:15 WBC 14.3 H Absolute Neuts (auto) 10.4 H Beta HCG, Quant 67489.00 H Urine Blood MODERATE H 07/30/19 11:05 Labs- Entire Visit 07/30/19 07/30/19 07/30/19 07:31 07:31 07:31 WBC 14.3 H RBC 4.11 Hgb 13.3 Hct 38.1 MCV 93 MCH 32.3 MCHC 34.8 RDW 12.9 Plt Count 264 Lymph % (Auto) 18.7 [place] % (Auto) 4.7 Eos % (Auto) 3.7 Baso % (Auto) 0.4 Absolute Neuts (auto) 10.4 H Absolute Lymphs (auto) 2.7 Absolute Monos (auto) 0.7 Absolute Eos (auto) 0.5 Absolute Basos (auto) 0.1 Seg Neutrophils % 72.5 Beta HCG, Quant 07183.00 H Total Beta HCG POSITIVE Urine Color Urine Appearance Urine pH Ur Specific [place] Urine Protein Urine Glucose (UA) Urine Ketones Urine Blood Urine Nitrite Urine Bilirubin Urine Urobilinogen Ur Leukocyte Esterase Urine RBC (Auto) Squamous Epi Cells Auto Urine Mucus (Auto) Urine Ascorbic Acid Blood Type B POSITIVE Rhogam Indicated RHOGAM NOT INDICATED 07/30/19 08:15 WBC RBC Hgb Hct MCV MCH MCHC RDW Plt Count Lymph % (Auto) [place] % (Auto) Eos % (Auto) Baso % (Auto) Absolute Neuts (auto) Absolute Lymphs (auto) Absolute Monos (auto) Absolute Eos (auto) Absolute Basos (auto) Seg Neutrophils % Beta HCG, Quant Total Beta HCG Urine Color STRAW Urine Appearance CLEAR Urine pH 6.0 Ur Specific [place] 1.004 Urine Protein NEGATIVE Urine Glucose (UA) NEGATIVE Urine Ketones NEGATIVE Urine Blood MODERATE H Urine Nitrite NEGATIVE Urine Bilirubin NEGATIVE Urine Urobilinogen NEGATIVE Ur Leukocyte Esterase NEGATIVE Urine RBC (Auto) 0 Squamous Epi Cells Auto <1 Urine Mucus (Auto) RARE Urine Ascorbic Acid NEGATIVE Blood Type Rhogam Indicated - Diagnostic Test Radiology reviewed: Reports reviewed Discharge - Discharge Clinical Impression: early loss Condition: Stable Disposition: HOME, SELF-CARE Instructions: Miscarriage ([facility]) Additional Instructions: Return immediately for any new or worsening symptoms Followup with your primary care provider, call tomorrow to make a followup appointment [facility], call today to make a follow-up appointment Prescriptions: Naproxen [Naprosyn 250 Nmg Tablet] 1 tab PO BID #14 tablet Referrals: [facility] [Provider Group] - Follow up tomorrow
[2019-07-30 08:47] LABS: APPEARANCE,URINE CLEAR; BILIRUBIN,URINE NEGATIVE (NEGATIVE); COLOR,URINE STRAW; GLUCOSE, URINE NEGATIVE (NEGATIVE); KETONES,URINE NEGATIVE (NEGATIVE); LEUKOCYTE ESTERASE,URINE NEGATIVE (NEGATIVE); NITRITE,URINE NEGATIVE (NEGATIVE); PROTEIN,URINE NEGATIVE (NEGATIVE); URINE SPECIFIC GRAVITY 1.004; UROBILINOGEN,URINE NEGATIVE mg/dL (<2.0)
--- NOTE | 2019-07-30 09:56 | RADIOLOGY REPORT (SQ) ---
EXAM DESCRIPTION: U/S OB TRANSVAGINAL W/O DOP COMPLETED DATE/TIME: 07/30/2019 9:13 am REASON FOR STUDY: pelvic pain, vag bleeding COMPARISON: 07/18/2019 TECHNIQUE: Transvaginal static and realtime grayscale images acquired of the pelvis. Additional rory cted spectral and color Doppler images recorded. All images stored on PACs. bHCG: Not available. CLINICAL DATES: LMP 06/01/2019, CHELSIE: 03/04/20, EGA: 8 weeks 3 days LIMITATIONS: None. FINDINGS: FETUS: Single intrauterine . ULTRASOUND EGA: 7 weeks 0 days ULTRASOUND CHELSIE: 03/17/2019 EFW: Not applicable less than 20 weeks. CRL: 1.0 cm FHR: Not visualized. Previously, 100 beats per minute on 07/18/2019. SURVEY: Too early to assess. AMNIOTIC FLUID: Adequate amount. PLACENTA: Not yet developed due to early gestation. SUBCHORIONIC BLEED: Likely small subchorionic hemorrhage. SIZE OF BLEED: Less than 10% of the sac. UTERUS: Again seen is the bicornuate uterus with within the right horn. Hypoechoic heterog eneous material within the left uterine horn. CERVICAL LENGTH: 2.9 cm Closed. RIGHT ADNEXA: 3.2 x 2.4 x 4.4 cm. No adnexal free fluid. No adnexal masses. LEFT ADNEXA: Ovary not identified due to poor acoustical window. No adnexal free fluid. No adnexal masses. FREE FLUID: None. OTHER: No other significant finding. IMPRESSION: 1. Intrauterine with crown-rump length of 1.0 cm and no heart tones vi sualized compatible with failed intrauterine . Recommend rivet sorter consultation for further ma nagement. 2. Again seen is the bicornuate uterus with the gestational sac in the right uterine horn. Likely sm all amount of hemorrhage within the left uterine horn. Findings discussed with Charlie at 0948 hours on 07/30/2019. TECHNICAL DOCUMENTATION: JOB ID: [id number]- All Rights Reserved rev-01/09 Reading location - IP/workstation name: [email or web address] CLINICAL INFORMATION [email or web address]
[2019-07-30] MEDS ORDERED: MISOPROSTOL 0.2 MG TABLET PO ONE (11:08)
[2019-07-30] MEDS ORDERED: IBUPROFEN 800 MG TABLET PO ONE (11:11)
[2019-07-30 11:30] VITALS: BP 134/98
== END 2019-07-30 11:30 | disposition home or self-care (01) ==
LOC: ER 07:10
DX: O03.9 Complete or unspecified spontaneous abortion without complication (principal); R11.0 Nausea; R42 Dizziness and giddiness; Z3A.08 8 weeks gestation of pregnancy
CPT/HCPCS: 99284; 96360; 96361; 86900; 86901; 36415; 84702; 85025; 81001; 76817; J7030

== ENCOUNTER 2019-07-31 07:39 | Emergency (ER) | payer SELFPAY ==
--- NOTE | 2019-07-31 09:34 | ER Document Report ---
ED General - General Chief Complaint: OB Problem (<20wks) Stated Complaint: NAUSEA Time Seen by Provider: 07/31/19 08:43 Primary Care Provider: MARCEL CARTER MD [ACTIVE STAFF] - 08/02/19 (call friday for an appointment. ) Mode of Arrival: Ambulatory Information source: Patient Notes: This 38-year-old female G4, P0 with PCOS and bicornate uterus presents emergency department with reports that she has been to the emergency department and her HISTORICAL GUIDE several times during this . She reports at first she was told everything was going in the right direction. was on track, she was approximately 8 weeks. She reports yesterday she felt a gush of blood, came to the emergency department her hCGs remain the same but no heartbeat was detected. She received Cytotec yesterday. She was instructed to expect abdominal cramps and bleeding. She reports she has had very light bleeding and very light cramps. She is concerned about retained products. Denies pain with void denies fever vomiting diarrhea. TRAVEL OUTSIDE OF THE [place] IN LAST 30 DAYS: No - HPI Onset: Other Onset/Duration: Persistent, Waxing and waning Quality of pain: Cramping Associated symptoms: None Exacerbated by: Denies Relieved by: Denies Similar symptoms previously: Yes Recently seen / treated by doctor: Yes - Related Data Allergies/Adverse Reactions: No Known Allergies Allergy (Verified 07/31/19 07:50) Past Medical History - General Information source: Patient Last Menstrual Period: 06/09/19 - Social History Smoking Status: Current Every Day Smoker Chew tobacco use (# tins/day): No Frequency of alcohol use: None Drug Abuse: None Occupation: [employer] Lives with: Family Family History: Reviewed & Not Pertinent Patient has suicidal ideation: No Patient has homicidal ideation: No - Past Medical History Cardiac Medical History: Reports: Hx Hypertension Pulmonary Medical History: Reports: Hx Bronchitis Endocrine Medical History: Reports: Hx Diabetes Mellitus Type 1, Hx Diabetes Mellitus Type 2, Other - PCOS Renal/ Medical History: Reports: Hx Ovarian Cysts. Denies: Hx Peritoneal Dialysis Musculoskeletal Medical History: Reports Hx Arthritis Past Surgical History: Reports: Hx Oral Surgery, Hx Orthopedic Surgery - LEFT KNEE - Immunizations Hx Diphtheria, Pertussis, Tetanus Vaccination: Yes Review of Systems - Review of Systems Notes: Review HPI for review of systems., All other systems negative Physical Exam - Vital signs Vitals: Pulse BP 77 112/67 07/10/19 13:13 07/10/19 13:13 - Notes Notes: PHYSICAL EXAMINATION: GENERAL: Well-appearing and in no acute distress HEAD: Atraumatic, normocephalic. EYES: Pupils equal round and reactive to light, extraocular movements intact, sclera anicteric, conjunctiva are normal. ENT: nares patent, oropharynx clear without exudates. Moist mucous membranes. NECK: Normal range of motion, supple without lymphadenopathy LUNGS: CTAB and equal. No wheezes rales or rhonchi. HEART: Regular rate and rhythm without murmurs ABDOMEN: Soft, no tenderness. No guarding, no rebound EXTREMITIES: Normal range of motion, no pitting edema. No cyanosis. NEUROLOGICAL: Cranial nerves grossly intact. Normal sensory/motor exams. PSYCH: Normal mood, normal affect. SKIN: Warm, Dry, normal turgor, no rashes or lesions noted Course - Re-evaluation Re-evalutation: 07/31/19 11:54 48-year female G4, P0 presents emergency department with reports she had a recent visit in the emergency department several times and with her HISTORICAL GUIDE for demise. She was given Cytotec yesterday. She expected to have cramps and vaginal bleeding but that has not happened. Patient is concerned. Denies fever vomiting diarrhea. Reports leg cramps nothing she can handle now. Took 800 mg while she is at work at [employer] last night. Labs are unremarkable ultrasound still shows POC. She reports very light bleeding. Dr. Freedom Carter was consulted. He advised discharge patient follow-up in the office Friday for possible D&C. Patient was instructed on this. She was also instructed to return to the emergency department for severe pain bleeding concerns. She verbalized understanding to all instructions. 07/31/19 09:25 07/31/19 09:25 MCV 93 fl (80-97) 07/31/19 09:25 MCH 32.9 pg (27.0-33.4) 07/31/19 09:25 MCHC 35.3 g/dL (32.0-36.0) 07/31/19 09:25 RDW 13.0 % (11.5-14.0) 07/31/19 09:25 Seg Neutrophils % 62.3 % (42-78) 07/31/19 09:25 Chloride 107 mmol/L (98-107) 07/31/19 09:25 Carbon Dioxide 23 mmol/L (22-30) 07/31/19 09:25 Anion Gap 9 (5-19) 07/31/19 09:25 Est GFR ( Amer) > 60 (>60) 07/31/19 09:25 Glucose 92 mg/dL (75-110) 07/31/19 09:25 Calcium 9.3 mg/dL (8.4-10.2) 07/31/19 09:25 Total Bilirubin 0.3 mg/dL (0.2-1.3) 07/31/19 09:25 AST 16 U/L (14-36) 07/31/19 09:25 Alkaline Phosphatase 57 U/L (38-126) 07/31/19 09:25 Total Protein 6.6 g/dL (6.3-8.2) 07/31/19 09:25 Albumin 3.9 g/dL (3.5-5.0) 07/31/19 09:25 Obstetrics Ultrasound 07/31/19 09:31 IMPRESSION: demise. EGA 7 weeks Trimester of : First trimester - 0 to 13 weeks. 07/31/19 11:55 Dictation of this chart was performed using voice recognition software; therefore, there may be some unintended grammatical errors. - Vital Signs Vital signs: Temp Pulse Resp BP Pulse Ox 98.5 F 85 16 118/75 100 07/31/19 11:53 07/31/19 11:53 07/31/19 11:53 07/31/19 11:53 07/31/19 11:53 - Laboratory Result Diagrams: 07/31/19 09:25 07/31/19 09:25 Laboratory results interpreted by me: 07/31/19 07/31/19 09:25 09:25 WBC 10.7 H Creatinine 0.38 L Beta HCG, Quant 58945.00 H - Diagnostic Test Radiology reviewed: Image reviewed, Reports reviewed - Consults Dr. Freedom Carter Time consulted: 10:49 Reason for consultation: 07/31/19 10:49 , incomplete miscarriage. Received Cytotec yesterday no results today. Patient will follow-up in office Consulted provider: follow-up in office Discharge - Discharge Clinical Impression: Incomplete miscarriage Condition: Stable Disposition: HOME, SELF-CARE Instructions: [facility] ([facility]) Additional Instructions: *You have been evaluated for incomplete miscarriage *Take ibuprofen as indicated for pain *Follow up with [facility] Friday. Call for appointment *Avoid sexual intercourse until follow up *Return to ED for worsening condition, changes, needs,fever, severe bleeding, pain, concerns Forms: Return to Work Referrals: MARCEL CARTER MD [ACTIVE STAFF] - 08/02/19 (call friday for an appointment. )
[2019-07-31 09:45] LABS: ABSOLUTE BASOPHILS # (AUTO) 0.1 10^3/uL (0.0-0.2); ABSOLUTE EOSINOPHILS # (AUTO) 0.5 10^3/uL (0.0-0.6); ABSOLUTE LYMPHOCYTES (AUTO) 2.9 10^3/uL (0.5-4.7); ABSOLUTE MONOCYTES (AUTO) 0.6 10^3/uL (0.1-1.4); ABSOLUTE NEUT (AUTO) 6.6 10^3/uL (1.7-8.2); BASOPHILS % (AUTO) 0.5 % (0-2); EOSINOPHILS % (AUTO) 4.7 % (0-6); HEMATOCRIT 37.1 % (36.0-47.0); HEMOGLOBIN 13.1 g/dL (12.0-15.5); LYMPHOCYTES % (AUTO) 27.1 % (13-45); MEAN CORPUSCULAR HEMOGLOBIN 32.9 pg (27.0-33.4); MEAN CORPUSCULAR HGB CONC 35.3 g/dL (32.0-36.0); MEAN CORPUSCULAR VOLUME 93 fl (80-97); MONOCYTES % (AUTO) 5.4 % (3-13); PLATELET COUNT 289 10^3/uL (150-450); RED BLOOD COUNT 3.99 10^6/uL (3.72-5.28); SEGMENTED NEUTROPHILS % (AUTO) 62.3 % (42-78); TOTAL CELLS COUNTED % (AUTO) 100 %; WHITE BLOOD COUNT 10.7 10^3/uL (4.0-10.5)
[2019-07-31 10:06] LABS: ALBUMIN 3.9 g/dL (3.5-5.0); ALKALINE PHOSPHATASE 57 U/L (38-126); ANION GAP 9 (5-19); ASPARTATE AMINO TRANSFERASE 16 U/L (14-36); BILIRUBIN,DIRECT 0.1 mg/dL (0.0-0.4); BILIRUBIN,TOTAL 0.3 mg/dL (0.2-1.3); BLOOD UREA NITROGEN 8 mg/dL (7-20); CALCIUM 9.3 mg/dL (8.4-10.2); CARBON DIOXIDE 23 mmol/L (22-30); CHLORIDE 107 mmol/L (98-107); GLUCOSE 92 mg/dL (75-110); TOTAL PROTEIN 6.6 g/dL (6.3-8.2)
--- NOTE | 2019-07-31 11:06 | RADIOLOGY REPORT (SQ) ---
EXAM DESCRIPTION: U/S OB TRANSVAGINAL W/O DOP COMPLETED DATE/TIME: 07/31/2019 10:52 am REASON FOR STUDY: PREG, INCOMPLETE MISC. ABD PAIN COMPARISON: Multiple in the past 30 days, most recent 07/30/2019. TECHNIQUE: Transvaginal static and realtime grayscale images acquired of the pelvis. Additional rory cted spectral and color Doppler images recorded. All images stored on PACs. LIMITATIONS: None. FINDINGS: There is no change from yesterday. 11 mm crown-rump length within right horn of bicornuat e uterus with estimated gestational age 7 weeks 1 day. No heart tones. IMPRESSION: demise. EGA 7 weeks Trimester of : First trimester - 0 to 13 weeks. TECHNICAL DOCUMENTATION: JOB ID: [id number] [employer]- All Rights Reserved rev-01/09 Reading location - IP/workstation name: [email or web address]
[2019-07-31 12:08] VITALS: BP 118/75
== END 2019-07-31 11:53 | disposition home or self-care (01) ==
LOC: ER 07:39
DX: O03.4 Incomplete spontaneous abortion without complication (principal); O16.1 Unspecified maternal hypertension, first trimester; O24.911 Unspecified diabetes mellitus in pregnancy, first trimester; O99.331 Smoking (tobacco) complicating pregnancy, first trimester; Z3A.01 Less than 8 weeks gestation of pregnancy
CPT/HCPCS: 36415; 76817; 80053; 84702; 85025; 99284

== ENCOUNTER 2019-08-03 08:58 | Day surgery (SDC) | payer SELFPAY ==
[2019-08-03] MEDS ORDERED: DOXYCYCLINE HYCLATE 100 MG in DEXTROSE 5%-WATER 250 ML IV PRN (09:28)
[2019-08-03 10:04] LABS: HEMATOCRIT 36.5 % (36.0-47.0); HEMOGLOBIN 12.8 g/dL (12.0-15.5); MEAN CORPUSCULAR HEMOGLOBIN 32.8 pg (27.0-33.4); MEAN CORPUSCULAR HGB CONC 35.1 g/dL (32.0-36.0); MEAN CORPUSCULAR VOLUME 93 fl (80-97); PLATELET COUNT 262 10^3/uL (150-450); RED BLOOD COUNT 3.91 10^6/uL (3.72-5.28); RED CELL DISTRIBUTION WIDTH 12.6 % (11.5-14.0); WHITE BLOOD COUNT 13.4 10^3/uL (4.0-10.5)
[2019-08-03 10:31] LABS: APPEARANCE,URINE CLEAR; BILIRUBIN,URINE NEGATIVE (NEGATIVE); COLOR,URINE YELLOW; GLUCOSE, URINE NEGATIVE (NEGATIVE); KETONES,URINE NEGATIVE (NEGATIVE); LEUKOCYTE ESTERASE,URINE NEGATIVE (NEGATIVE); NITRITE,URINE NEGATIVE (NEGATIVE); PROTEIN,URINE NEGATIVE (NEGATIVE); URINE SPECIFIC GRAVITY 1.018; UROBILINOGEN,URINE NEGATIVE mg/dL (<2.0)
[2019-08-03] MEDS ORDERED: LIDOCAINE 2% INJ-PF (20 MG/ML) 10 ML AMPUL ONE (12:28)
[2019-08-03] MEDS ORDERED: MIDAZOLAM 2 MG/2 ML INJ ONE (12:28)
[2019-08-03] MEDS ORDERED: DEXAMETHASONE SOD PHOSPHATE INJ 4 MG/1 ML VIAL ONE (12:28)
[2019-08-03] MEDS ORDERED: FENTANYL CITRATE INJ/PF 100 MCG/2 ML AMPUL ONE (12:28)
[2019-08-03] MEDS ORDERED: PROPOFOL INJ 200 MG/20 ML VIAL IV ONE (12:29)
[2019-08-03] MEDS ORDERED: ONDANSETRON HCL INJ/PF 4 MG/2 ML SDV ONE (12:29)
[2019-08-03] MEDS ORDERED: MEPERIDINE HCL/PF INJ 25 MG/1 ML DISP.SYRIN IV PRN (13:13)
[2019-08-03] MEDS ORDERED: ONDANSETRON HCL INJ/PF 4 MG/2 ML SDV IV PRN (13:13)
[2019-08-03] MEDS ORDERED: FENTANYL CITRATE INJ/PF 100 MCG/2 ML AMPUL IV PRN ×3 (13:13)
[2019-08-03] MEDS ORDERED: DIPHENHYDRAMINE HCL 50 MG/ML VIAL IV PRN (13:13)
[2019-08-03] MEDS ORDERED: OXYCODONE-ACETAMINOPHEN 5-325 MG TABLET PO PRN ×2 (13:13)
[2019-08-03] MEDS ORDERED: PROMETHAZINE HCL INJ 25 MG/1 ML VIAL IV PRN ×2 (13:13)
[2019-08-03] MEDS ORDERED: KETOROLAC TROMETHAMINE INJ/PF 30 MG/1 ML SDV ONE (13:50)
--- NOTE | 2019-08-03 13:52 | Operative Report ---
Operative Report DATE OF SURGERY: 08/03/19 PREOPERATIVE DIAGNOSIS: Missed . Bicornate uterus. Type B blood type, RH positive. Tobacco use POSTOPERATIVE DIAGNOSIS: Same as above OPERATION: Suction dilation and curettage with US guidance SURGEON: TREVA HIDALGO ANESTHESIA: Moderate Sedation TISSUE REMOVED OR ALTERED: Products of conception COMPLICATIONS: None ESTIMATED BLOOD LOSS: 50 INTRAOPERATIVE FINDINGS: Uterus approximately 8-10 wks size on palpation. One, normal appearing cervix. Uterus bicornate. US guidance used to assist with localization of failed and verification that tissue removed PROCEDURE: IV fluids: Crystalloid IV fluids per anesthesia record Disposition: To recovery room in stable condition Description of the procedure: The patient was taken to the operating room where monitored anesthesia was administered and found to be adequate. She was then placed in the dorsol lithotomy position and prepped and draped in the usual sterile fashion. A timeout was taken. A weighted speculum was placed in the vagina and a Huynh retractor was used to bring the cervix into good view. A single-tooth tenaculum was used to grasp the anterior lip of the cervix and the cervix was serially dilated. The uterus sounded to approximately 9.0 cm and both horns of uterus appreciated during sounding. Products of conception on Right. The cervix was serially dilated to approximately 8mm. The #8 suction curette was inserted and using suction, the products of conception were removed. The suction curette was removed and a regular curette was advanced to the uterine fundus on the right. Gentle curettage was done in a circumferential manner until a gritty texture was noted. The curette was removed and suction curette re-inserted to the fundus. Suction curettage done once more. The tissue obtained will be sent to the lab as products of conception. US used to confirm no gestational sac or products in right uterine horn. Left appeared normal also. The procedure was then terminated all instrument to remove the patient's vagina. The patient tolerated the procedure well all instrument sponge and needle counts were correct x2 for the procedure she will proceed to recovery room in stable condition
--- NOTE | 2019-08-03 13:54 | Discharge Summary ---
Discharge Summary (SDC) - Discharge Final Diagnosis: [place] Bicornate uterus RH positive Tobacco use Date of Surgery: 08/03/19 Discharge Date: 08/03/19 Condition: Good Prescriptions: Metronidazole [Flagyl 500 mg Tablet] 500 mg PO BID #10 tablet Ibuprofen [Ibu] 800 mg PO Q8 30 Days #30 tablet Discharge Diet: As Tolerated Discharge Activity: Activity As Tolerated Report the Following to Your Physician Immediately: Shortness of Breath, Nausea, Vomiting, Increase in Pain, Fever over 101 Degrees, Increased Vaginal Bleed, IV Site Infection Signs
[2019-08-03] MEDS ORDERED: OXYCODONE-ACETAMINOPHEN 5-325 MG TABLET ONE (14:33)
[2019-08-03 16:45] VITALS: BP 112/68
== END 2019-08-03 15:45 | disposition home or self-care (01) ==
LOC: OROUT 08:58
PROVIDERS: ATTEND Obstetrics & Gynecology
DX: O02.1 Missed abortion (principal); Q51.3 Bicornate uterus; Z67.20 Type B blood, Rh positive; F17.210 Nicotine dependence, cigarettes, uncomplicated
CPT/HCPCS: 36415; 85027; 81001; 88305 ×2; 59820; J2250; J1100; J3490 ×2; J3010; J1885; J2405; J7060; J2704; 1965

== ENCOUNTER 2020-01-11 11:46 | Emergency (ER) | payer MEDICAID, OTHER ==
[2020-01-11] MEDS ORDERED: ONDANSETRON HCL INJ/PF 4 MG/2 ML SDV IV ONE (12:03)
[2020-01-11] MEDS ORDERED: KETOROLAC TROMETHAMINE INJ/PF 30 MG/1 ML SDV IV ONE (12:03)
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
[2020-01-11 14:21] VITALS: BP 125/78
== END 2020-01-11 14:15 | disposition home or self-care (01) ==
LOC: ER 11:46
DX: S16.1XXA Strain of muscle, fascia and tendon at neck level, initial encounter (principal); S23.3XXA Sprain of ligaments of thoracic spine, initial encounter; M54.6 Pain in thoracic spine; M54.9 Dorsalgia, unspecified; M25.511 Pain in right shoulder; M25.512 Pain in left shoulder; M54.2 Cervicalgia; V87.7XXA Person injured in collision between other specified motor vehicles (traffic), initial encounter; I10 Essential (primary) hypertension
CPT/HCPCS: 99283; 96374; 96375; 72125; 72128; J1885; J2405

== ENCOUNTER 2020-01-15 12:15 | Emergency (ER) | payer OTHER ==
[2020-01-15] MEDS ORDERED: ONDANSETRON ODT 4 MG TAB (6 TAB/ER DISP) PO PRN (12:37)
[2020-01-15] MEDS ORDERED: OXYCODONE-ACETAMINOPHEN 5-325 MG TABLET PO ONE (12:37)
[2020-01-15] MEDS ORDERED: LIDOCAINE 5% (700 MG) TRANSDERMAL ADH..PATCH TP ONE (12:38)
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
== END 2020-01-15 12:52 | disposition home or self-care (01) ==
LOC: ER 12:15
DX: M54.2 Cervicalgia (principal); R51 Headache; M25.511 Pain in right shoulder; M25.512 Pain in left shoulder; M62.830 Muscle spasm of back; M54.9 Dorsalgia, unspecified; V53.5XXA Driver of pick-up truck or van injured in collision with car, pick-up truck or van in traffic accident, initial encounter; Y93.89 Activity, other specified; Y99.0 Civilian activity done for income or pay; F17.210 Nicotine dependence, cigarettes, uncomplicated; I10 Essential (primary) hypertension; E11.9 Type 2 diabetes mellitus without complications
CPT/HCPCS: 99283